=== PATIENT | female | born 2000 | race Caucasian/White ===

== ENCOUNTER 2022-04-18 20:27 | Emergency (ER) | payer OTHER, SELFPAY ==
[2022-04-18 20:29] VITALS: BP 152/101; PULSE 109; RESP 18; TEMP 36.3; O2SAT 100; BMI 18.6
--- NOTE | 2022-04-18 21:00 | ED_ITS ---
HPI - Psych General Chief Complaint: Psychiatric Symptoms Stated Complaint: Crisis Time Seen by Provider: 04/18/22 20:45 Source: patient and family (Father) Mode of arrival: ambulatory Limitations: no limitations History of Present Illness HPI Narrative: 22-year-old female brought to the emergency department by her father for evaluation in the emergency department and possible psychiatric admission after being evaluated by [facility]. The patient states that she has a history of anxiety and depression. She states that 3 weeks prior she moved in with her father and this is been a stressful situation for her. She states that she has become more anxious. She states she feels shaky. She states she is unable the focus. She also states she has had significant insomnia and is only able to sleep 5 hours a day. She denied hearing voices, being suicidal or having any suicide attempts. The patient went to [facility] for evaluation. Patient told me that initially they were considering partial outpatient programs however when the [facility] counselor spoke to the patient's psychiatrist, the psychiatrist had concerns that the patient needed inpatient treatment. The patient told me that approximately 1 year prior she had similar feelings and she had psychosis requiring hospitalization and she believes this is why her psychiatrist wanted her to come to the hospital. The patient denied fever, chills rhinorrhea, sore throat, cough, chest pain, frequency, urgency or dysuria. Patient states she does feel short of breath especially when she is anxious. She also states she gets nausea and diarrhea with her anxiety. MD complaint: anxiety Onset (ago): week(s) (3) Duration: constant History of same: Yes Relieving factors: none Exacerbating factors: other (Recent change in living situation) Associated symptoms: nausea, insomnia and other (Diarrhea) Treatments prior to arrival: none Related Data Home Medications Medication Instructions Recorded Confirmed No Known Home Meds 04/18/22 04/18/22 Allergies Allergy/AdvReac Type Severity Reaction Status Date / Time prednisone Allergy Unknown Verified 04/18/22 20:29 Review of Systems Review of Systems: Yes all other systems are reviewed and are negative [facility] Past Medical History [facility] Narrative: Past medical history: Anxiety, depression. Past surgical history: None. Social history: She denies tobacco use. She states that she does drink alcohol approximately 2 times a month. She occasionally uses marijuana edibles. Social History Social History Advance Directives: No Advance Directives Information Provided: No Physical Exam Vital Signs: Vital Signs: Last Vital Signs Temp 97.0 F 04/18/22 23:27 Pulse 86 04/18/22 23:27 Resp 16 04/18/22 23:27 BP 138/84 04/18/22 23:27 Pulse Ox 100 04/18/22 23:27 O2 Del Method 04/18/22 23:27 BMI result Body Mass Index 18.6 Const: General: cooperative and no acute distress Orientation/consciousness: oriented to person and oriented to place Limitations: no limitations HEENT: Head: Yes normal to inspection, Yes normocephalic and Yes atraumatic Ears: external ears normal General nose exam: Normal external nose present Face and sinus: Yes normal facial exam Mouth: Normal oral and palatal mucosa present Throat: Yes posterior oropharynx normal Eyes: General: appearance normal, both eyes and all related structures Pupils: Equal, round and reactive pupils present Neck: Neck: Yes normal visual inspection, Yes no lymphadenopathy, Yes trachea midline and Yes supple Chest: Chest palpation & inspection: normal inspection of the chest and normal palpation of entire chest wall Resp: Effort & Inspection: normal respiratory effort and able to speak in complete sentences Auscultation: clear to auscultation bilaterally Cardio: Rate: regular rate Rhythm: regular rhythm Heart sounds: S1 normal heart sound present, S2 normal heart sound present and no murmurs GI: Inspection: Yes normal to inspection Palpation (GI): Soft to palpation, nontender and no guarding Auscultation: normal bowel sounds : General: Yes no CVA tenderness Back/Spine/Pelvis: Back: no CVA tenderness Skin: General skin exam: no rashes or lesions noted Neuro: General: oriented to person and oriented to place Cranial nerves: Yes CN's II-XII intact bilaterally and Yes Equal, round and reactive pupils present Cognition (Neuro): normal cognition Motor exam (neuro): 5/5 motor strength present throughout Extrem: General: Yes normal to inspection Psych: Appearance: grossly normal Speech and movement: Normal speech and movement present Affect: normal affect Attitude: cooperative Thought process: Normal thought process present Thought content: Normal thought content present Course Course Course Narrative: 22-year-old female who is brought to emergency department by her father for possible psychiatric admission after being evaluated as an outpatient by [facility]. Apparently the patient's psychiatrist has concerns regarding the patient's presentation specially since the patient had psychosis 1 year prior with similar symptoms. At this time the patient denied being suicidal or homicidal. She does admit to being anxious. Her examination was unremarkable. Patient's urine test was negative. Patient's tox screen was negative. Patient's COVID-19 test was negative. 0905: Start physician observation: The patient was placed on a Section 12 by [facility]. Patient will be an inpatient search. Patient's examination is unremarkable MDM - Psych Lab Data Labs: Lab Results 04/18/22 04/18/22 04/18/22 Range/Units 21:24 22:33 22:33 Urine Test NEGATIVE (NEGATIVE) Urine Opiates Screen Not Detected (Not Detect) Urine Fentanyl Screen Not Detected (Not Detect) Ur Barbiturates Screen Not Detected (Not Detect) Ur Phencyclidine Scrn Not Detected (Not Detect) Ur Amphetamines Screen Not Detected (Not Detect) U Benzodiazepines Scrn Not Detected (Not Detect) Urine Cocaine Screen Not Detected (Not Detect) U Marijuana (THC) Screen Not Detected (Not Detect) COVID-19 ([place]) Negative (Negative) COVID-19 Clin Com See Note Discharge Plan Discharge Clinical Impression: Anxiety Patient Disposition: Still a Patient Prescriptions: No Action No Known Home Meds
[2022-04-18 21:49] LABS: COVID-19 Test Negative (Negative)
[2022-04-18] MEDS: Melatonin 3 MG TABLET 6 MG PO (22:30)
[2022-04-18 22:47] LABS: UPreg QC Valid YES; Urine Pregnancy NEGATIVE (NEGATIVE)
[2022-04-18 23:00] LABS: Amphetamine Screen Urine Not Detected (Not Detect); Barbiturates, Urine Not Detected (Not Detect); Benzodiazepines Screen Urine Not Detected (Not Detect); Cannabinoid Screen Urine Not Detected (Not Detect); Cocaine Screen Urine Not Detected (Not Detect); Fentanyl, urine Not Detected (Not Detect); Opiate Screen Urine Not Detected (Not Detect); Phencyclidine Screen Urine Not Detected (Not Detect)
[2022-04-18 23:27] VITALS: BP 138/84; PULSE 86; RESP 16; TEMP 36.1; O2SAT 100
[2022-04-18] MEDS: diphenhydrAMINE HCL 25 MG TABLET PO (23:39)
--- NOTE | 2022-04-19 06:31 | PC.NURSE ---
Patient slept though the night, no distress observed/reported, behavior non concerning, patient is currently not any medication, Melatonin 6 mg and Benadryle 25 mg administered to help sleep/delayed effect, disposition per [facility] from community is section 12 inpatient bed search, VSS, will continue to monitor.
[2022-04-19 12:26] VITALS: BP 127/95; PULSE 96; RESP 18; TEMP 36.8; O2SAT 100
[2022-04-19 19:51] VITALS: BP 125/90; PULSE 96; RESP 16; TEMP 36.4; O2SAT 100
[2022-04-20] MEDS: Ibuprofen 200 MG TABLET PO (01:02)
[2022-04-20 01:05] VITALS: BP 127/87; PULSE 94; RESP 16; TEMP 36.4; O2SAT 100
--- NOTE | 2022-04-20 05:37 | PC.NURSE ---
Patient slept through the night, no distress observed/reported, patient is not any scheduled medication at this time, Ibuprofen 200 mg administered for Headache with + effect, VSS, disposition per [facility] is section 12 inpatient bed search, no update on bed search, behavior non concerning, will continue to monitor.
== END 2022-04-20 15:31 | disposition home or self-care (01) ==
PROVIDERS: Emergency Provider Emergency Medicine Emergency Medical Services; PCP Internal Medicine
DX: F41.1 Generalized anxiety disorder (principal); F43.0 Acute stress reaction; F33.1 Major depressive disorder, recurrent, moderate; G47.00 Insomnia, unspecified; Z20.822 Contact with and (suspected) exposure to COVID-19; Z79.899 Other long term (current) drug therapy
CPT/HCPCS: 80307; 81025; 87635; 99285; Q0163

== ENCOUNTER 2023-05-08 14:16 | Inpatient (IN) | payer OTHER, SELFPAY ==
[2023-05-08 14:37] VITALS: BP 134/90; BP 136/77; PULSE 115; PULSE 86; RESP 18; TEMP 36.8; O2SAT 98; BMI 19.4
[2023-05-08 15:14] LABS: Appearance Urine Clear; Color Urine Yellow; Glucose Urine UA Negative (Negative); Leukocyte Esterase Urine Negative (Negative); Nitrite Urine Positive (Negative); PH 6.5 (5.0-9.0); Specific Gravity - Urine <= 1.005 (1.005-1.025); UMIC TRIGGER UACC YES; Urine Blood Trace (Negative); Urine Ketones 15 mg/dL (Negative); Urine Protein Negative (Neg-Trace)
[2023-05-08 15:15] LABS: UPreg QC Valid YES; Urine Pregnancy NEGATIVE (NEGATIVE)
[2023-05-08 15:15] LABS: MANUAL DIFF FLAG NO
[2023-05-08 15:16] LABS: Basophils Percent Auto 0.2 % (0-2); Eosinophils Percent Auto 0.4 % (0-4); Hemoglobin 13.5 g/dl (12.0-16.0); Imm Gran Abs Auto 0.02 X10*3/uL (0.00-0.03); Imm Gran Pct Auto 0.2 % (0.0-0.4); Lymphocytes Percent Auto 20.4 % (20-40); Mean Corpuscular HGB Conc 33.8 g/dl (31.0-35.0); Mean Corpuscular Hemoglobin 28.1 pg (27.0-33.0); Mean Corpuscular Volume 83.2 fL (80.0-98.0); Mean Platelet Volume 10.4 fL (9.4-12.3); Monocytes Absolute Auto 0.9 X10*3/uL (0.1-1.2); Neutrophils Absolute Auto 6.8 x10*3/uL (2.0-8.3); Neutrophils Percent Auto 69.8 % (45-73); Platelet Count 325 X10*3/uL (160-400); Red Blood Count 4.81 X10*6/uL (4.20-5.50); Red Cell Distribution Width 13.2 % (11.0-16.0); White Blood Count 9.8 X10*3/uL (4.8-10.8)
[2023-05-08 15:19] LABS: Bacteria Urine 4+ (None Seen); Hyaline Casts Urine 0-2 /LPF (0-2); RBC Urine 0-2 /HPF (0-2); Squamous Epithelial Cell Urine 0-2 /HPF (0-2); UACC Culture Trigger YES; WBC Urine 0-5 /HPF (0-5)
[2023-05-08 15:36] LABS: Acetaminophen LAB < 17 mcg/mL (<30); Salicylate < 5.0 mg/dL (15-30)
[2023-05-08 15:43] LABS: Alanine Aminotransferase 15 U/L (0-31); Albumin Level 5.2 g/dL (3.5-5.0); Alkaline Phosphatase 65 U/L (39-117); Anion Gap 16 (12-20); Aspartate Amino Transferase 21 U/L (5-31); Bilirubin Total 1.1 mg/dL (0.0-1.0); Blood Urea Nitrogen 7 mg/dL (9-16); Calcium 9.7 mg/dL (8.4-10.2); Carbon Dioxide 19 mmol/L (22-29); Chloride 110 mmol/L (96-108); Creatinine Clr Calc Pharmacy 97.6; Estimated Glomerular Filt Rate > 60; Ethanol < 10 mg/dL; Glucose Random 87 mg/dL (60-115); Potassium 3.2 mmol/L (3.3-5.1); Sodium 142 mmol/L (135-145); Total Protein 8.1 g/dL (6.5-8.0)
[2023-05-08 16:18] VITALS: RESP 18
--- NOTE | 2023-05-08 16:19 | PC.NURSE ---
Alie was BIBA she is presenting as disorganized, pressured and tangential. Alie keeps repeating Alie is god and is asking for her boyfriend and a sister who family reports lives across the country. Alie does endorse some marijuana usage but denies other drugs. Alie denies AVH. No clear answer to SI/HI but she does repeat words this health underwriter states back to herself multiple times. Labs pending and mom is visiting with her currently.
--- NOTE | 2023-05-08 16:59 | ED_ITS ---
HPI - Psych General Chief Complaint: Psychiatric Symptoms Stated Complaint: psychotic episode, no si/hi precautions, per ems Time Seen by Provider: 05/08/23 15:21 Source: other ( boyfriend, Michael) Mode of arrival: ambulatory Limitations: no limitations History of Present Illness HPI Narrative: 23-year-old female was brought to emergency department by ambulance for evaluation of acute psychosis. Information comes from the patient's boyfriend, Michael who lives with the patient. the boyfriend states that 2 weeks prior the patient had COVID and recovered a recent control shot and since that time she has had vaginal bleeding. He states that the patient has had a lot of stress at work and there has been several other events that have been extremely stressful to the patient. the patient organized a birthday constitution party for a friend which was extremely stressful to the patient and after this event, patient's seem to become more anxious, she was having difficulty sleeping and she became paranoid. 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 She also went to a hospital with her boyfriendto visit her boyfriend's friend and while she was in the hospital she became very paranoid again. her boyfriend states that her father is very sabianist and after seeing her father, the patient was made sabianist statements. When I introduced myself to the patient she told me that her name was Alie and got wants to keep her safe . according to her boyfriend, the patient may have had a psychotic break 1 year prior which was attributed being prednisone for poison jose. The patient rarely drinks alcohol and smokes marijuana several times a week. Related Data Home Medications Medication Instructions Recorded Confirmed medroxyprogesterone 150 mg/mL 150 mg IM [id number] 05/08/23 05/08/23 intramuscular syringe (Depo-Provera) Allergies Allergy/AdvReac Type Severity Reaction Status Date / Time prednisone Allergy Unknown Verified 04/18/22 20:29 Review of Systems 2 Review of Systems: Yes Unobtainable due to mental status PMFSH Past Medical History PMFSH Narrative: Past medical history: Anxiety and psychotic break 1 year prior. Social history: She lives with her boyfriend , Michael who was here in the emergency department with her. she does not smoke cigarettes. She rarely drinks alcohol. She does smoke marijuana you times Social History Social History Patient Tobacco Use Status: Never used Tobacco Advance Directives: No Advance Directives Information Provided: No Physical Exam 2 Vital Signs: Vital Signs: Last Vital Signs Temp 98.3 F 05/08/23 14:37 Pulse 115 H 05/08/23 14:37 Resp 18 05/08/23 16:18 BP 136/77 05/08/23 14:37 Pulse Ox 98 05/08/23 14:37 O2 Del Method Room Air 05/08/23 14:37 BMI result Body Mass Index 19.4 vital signs were normal. Exam General: Awake, alert , patient is talking however it is difficult to make sense of what she is saying, she did repeat that God will keep her safe Head: Normocephalic, atraumatic EENT: PERRL, Lids normal, sclera normal, conjunctiva normal, nose normal , ears normal, throat without erythema or exudates Neck: Supple, no adenopathy, trachea midline and nontender Lung: breath sounds symmetric, no wheezing, rales or rhonchi Chest: symmetric movement, nontender Heart: regular rate and rhythm, normal S1, S2 no murmurs or rubs Abdomen: soft, non-tender, nondistended, normal bowel sounds Back: no vertebral tenderness, no CVAT Extremities: no deformities, moves all extremities symmetrically Skin: no rashes, no lesion, normal color and warmth Neuro: Awake, alert, cranial nerves intact, strength symmetric bilateral , Psych: Pleasant, patient makes nonsensical statement, appears anxious, is cooperate Medical Decision Making Medical Decision Making [facility] Narrative: 23-year-old female who has a history of a psychotic break 1 year prior which was attributed to being on prednisone for poison jose who has been under stress over the last 2 weeks, over the last several days she has not been sleeping, she has had episodes of paranoid ideation. On examination the patient has nonsensical speech, is making vague sabianist statements. Following evaluation was ordered: CBC, CMP, TSH with reflex T4, ethanol level, urine tox screen, salicylate, acetaminophen levels, urinalysis, urine test, vitamin B12 and folate levels 17 10: Start physician observation Patient's laboratory evaluation revealed a low potassium of 3.2, low bicarb of 19 otherwise was unremarkable -this could be secondary to malnutrition. patient's drug screen was negative The patient has been having paranoid ideation. The patient will be kept in the emergency department Behavioral Health Unit until she can be evaluated by our care team for possible acute psychotic episode of unclear etiology. At the end of my shift, patient's care was turned over to my colleague, Dr. Charleen Montenegro Differential Diagnosis Differential Diagnoses: The differential diagnosis associated with the presentation includes differential diagnosis includes was not limited to acute psychotic episode, anxiety, depression, drug use, electrolyte abnormalities, anemia Admission/Observation Consideration of admission/observation: Escalation of care including admission/observation considered Lab Data MDM Lab Attestation statement: I reviewed the patient's lab results. head patient's potassium was low 3.2, bicarb was low 19 -these abnormalities may be secondary to malnutrition the patient's urine test was negative. CBC was normal. Urine drug screen was negative. COVID-19 was negative. Alcohol below detectable limits .acetaminophen and salicylate levels were below detectable limits as well pain 05/08/23 15:11 05/08/23 15:11 Labs: Lab Results 05/08/23 05/08/23 Range/Units 15:06 15:11 WBC 9.8 (4.8-10.8) X10*3/uL RBC 4.81 (4.20-5.50) X10*6/uL Hgb 13.5 (12.0-16.0) g/dl Hct 40.0 (37.0-47.0) % MCV 83.2 (80.0-98.0) fL MCH 28.1 (27.0-33.0) pg MCHC 33.8 (31.0-35.0) g/dl RDW 13.2 (11.0-16.0) % Plt Count 325 (160-400) X10*3/uL MPV 10.4 (9.4-12.3) fL Immature Gran % (Auto) 0.2 (0.0-0.4) % Neut % (Auto) 69.8 (45-73) % Lymph % (Auto) 20.4 (20-40) % [place] % (Auto) 9.0 (2-11) % Eos % (Auto) 0.4 (0-4) % Baso % (Auto) 0.2 (0-2) % Lymph # (Auto) 2.0 (1.2-4.9) X10*3/uL [place] # (Auto) 0.9 (0.1-1.2) X10*3/uL Eos # (Auto) 0.0 (0.0-0.4) X10*3/uL Baso # (Auto) 0.0 (0.0-0.2) X10*3/uL Abs Immat Gran (auto) 0.02 (0.00-0.03) X10*3/uL Absolute Neuts (auto) 6.8 (2.0-8.3) x10*3/uL Absolute Nucleated RBC 0.000 (0.0-0.012) X10*3/uL Nucleated RBC % (auto) 0.0 (0.0-0.2) /100WBC Sodium 142 (135-145) mmol/L Potassium 3.2 L (3.3-5.1) mmol/L Chloride 110 H (96-108) mmol/L Carbon Dioxide 19 L (22-29) mmol/L Anion Gap 16 (12-20) BUN 7 L (9-16) mg/dL Creatinine 0.77 (0.5-1.4) mg/dL Estim Creat Clear Calc 97.6 Estimated GFR > 60 Random Glucose 87 (60-115) mg/dL Calcium 9.7 (8.4-10.2) mg/dL Total Bilirubin 1.1 H (0.0-1.0) mg/dL AST 21 (5-31) U/L ALT 15 (0-31) U/L Alkaline Phosphatase 65 (39-117) U/L Total Protein 8.1 H (6.5-8.0) g/dL Albumin 5.2 H (3.5-5.0) g/dL Urine Color Yellow Urine Appearance Clear Urine pH 6.5 (5.0-9.0) Ur Specific [place] <= 1.005 (1.005-1.025) Urine Protein Negative (Neg-Trace) mg/dL Urine Glucose (UA) Negative (Negative) mg/dL Urine Ketones 15 (Negative) mg/dL Urine Blood Trace H (Negative) Urine Nitrite Positive H (Negative) Ur Leukocyte Esterase Negative (Negative) Urine RBC 0-2 (0-2) /HPF Urine WBC 0-5 (0-5) /HPF Ur Squamous Epith Cells 0-2 (0-2) /HPF Urine Bacteria 4+ (None Seen) Hyaline Casts 0-2 (0-2) /LPF Urine Test NEGATIVE (NEGATIVE) Salicylates < 5.0 L (15-30) mg/dL Acetaminophen < 17 (<30) mcg/mL Ethyl Alcohol < 10 mg/dL Discharge Plan Discharge Clinical Impression: Acute psychosis Patient Disposition: Still a Patient Prescriptions: No Action medroxyprogesterone [Depo-Provera] 150 mg/mL Syringe 150 mg IM [id number] Interventions: [place]-Suicide Risk Severity Scale Last Done: 05/08/23 16:14
[2023-05-08 17:16] LABS: Amphetamine Screen Urine Not Detected (Not Detect); Barbiturates, Urine Not Detected (Not Detect); Benzodiazepines Screen Urine Not Detected (Not Detect); Cannabinoid Screen Urine POSITIVE (Not Detect); Cocaine Screen Urine Not Detected (Not Detect); Fentanyl, urine Not Detected (Not Detect); Opiate Screen Urine Not Detected (Not Detect); Phencyclidine Screen Urine Not Detected (Not Detect)
--- NOTE | 2023-05-08 17:17 | MHC.EDTECH ---
Necklace removed from patient and placed in her locker. SG
[2023-05-08 18:09] LABS: Folate 17.3 ng/mL (> or = 4.0); Vitamin B12 1602 pg/mL (200-900)
[2023-05-08] MEDS: LORazepam 1 MG TABLET 2 MG PO (18:31)
[2023-05-08] MEDS: OLANZapine 10 MG TABLET PO (18:31)
[2023-05-08] MEDS: diphenhydrAMINE HCL 25 MG CAPSULE 50 MG PO (18:31)
[2023-05-08 19:03] LABS: TSH reflex Free T4 1.22 uIU/mL (0.32-4.0)
[2023-05-08 20:23] LABS: COVID-19 Test Negative (Negative); IDNOW Serial# BCCEAD1C
[2023-05-09 01:20] VITALS: BP 149/89; PULSE 88; RESP 18; TEMP 36.6; O2SAT 97
[2023-05-09 02:54] VITALS: BMI 19.4
[2023-05-09] MEDS: hydrOXYzine HCL 25 MG TABLET PO (03:09)
--- NOTE | 2023-05-09 03:56 | PC.ADMIT ---
Patient admitted to from [facility] on 05/09/23 at 0115 on a CV due to psychosis. For past week, patient has been experiencing poor sleep and appetite as well as disorganized speech, paranoia, confused thoughts, anxiety and psychomotor agitation. She has been experiencing recent life stressors as well as not being on current medications. Patient has had two prior episodes of psychosis within the past two years. She has had multiple inpatient hospitalizations (at [facility], [facility], and [facility]) in 2020. Upon arrival to the unit, patient appears paranoid, and responding to internal stimuli. She signed all appropriate releases of information. She had difficulty answering questions throughout admission process due to internal stimuli. Patient whispering answers and repeatedly signed the alphabet in sign language while answering questions. Skin check and contraband check completed with second RN. Unable to complete safety tool due to patient being medicated prior to arrival and falling asleep.
[2023-05-09 06:00] VITALS: BP 143/93; PULSE 142; RESP 18; TEMP 36; O2SAT 100
[2023-05-09 10:49] LABS: Alanine Aminotransferase 16 U/L (0-31); Albumin Level 5.1 g/dL (3.5-5.0); Alkaline Phosphatase 65 U/L (39-117); Anion Gap 18 (12-20); Aspartate Amino Transferase 21 U/L (5-31); Bilirubin Total 0.9 mg/dL (0.0-1.0); Blood Urea Nitrogen 8 mg/dL (9-16); Calcium 9.6 mg/dL (8.4-10.2); Carbon Dioxide 19 mmol/L (22-29); Chloride 108 mmol/L (96-108); Cholesterol 90 mg/dL (<200); Creatinine Clr Calc Pharmacy 82.7; Estimated Glomerular Filt Rate > 60; Glucose Fasting 126 mg/dL (60-99); HDL Cholesterol 38 mg/dL (>40); LDL Cholesterol Calculated 45 mg/dL (<100); Sodium 142 mmol/L (135-145); Total Protein 7.8 g/dL (6.5-8.0); Triglycerides 39 mg/dL (<150)
--- NOTE | 2023-05-09 10:52 | P.HPPS_ITS ---
HPI Date of Service: 05/09/23 Chief Complaint: psychosis Sources of Information: patient interviewed, chart reviewed and crisis/core team assessment reviewed HPI Subjective Notes: Conditional Voluntary Narrative: 23 year old female that lives in [place] with BF. Majority of the information was obtained from the crisis report. Further historic info will need to be obtained from family. Patient was disorganized and unable to participate. Patient's mom called for a crisis evaluation due to patient acting disorganized at home, not eating and not sleeping. She was paranoid and having disorganized thinking and having psychomotor agitation during her crisis evaluation. Patient was seen in [place] at her mother's request. She was then sent to the [place] [facility] Patient has a history of at least 2 psychotic breaks the last of which was a year ago. Patient has not been on medications. She also has a history of hospitalization at [facility] and [facility]. Per the crisis records, the patient's psychosis was triggered by steroids. 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 Also had moved to [place] with her BF. In the ED patient was anxious and unable to participate meaningfully in the interview at the ED and told the ED physician her name was Alie and God will protect me. Reported MJ use but no alcohol or other drugs. Lab work in the ED was unrevealing. Seen on the unit. She presented as a thin and petite young woman, intense eye contact, apprehensive. She was able to follow this speech writer to her room to meet but then sat on the bed and started mumbling incoherently in a soft voice. She was unable to coherently interact with this examiner. She was anxious. She was lifting both her pinkies in the air. Then she lay on the bed and started crying. She was seen standing in the doorway and scooting and talking to patients passing by.. Past Psychiatric History: February 2021: [facility] [place] April 2021: [facility] March 2021: [facility] Medical Evaluation Reviewed: Yes Recently received a depo provera shot. [facility] Family History: Reported mental illness in the family Social History: Raised in [facility]. Parents when patient was 15. Youngest of 2 sisters. Graduated [employer]. 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 Recent move with . Substance History: MJ Trauma History: Alluded to in crisis evaluation. Details unclear. Diagnostics Vital Signs (24Hr): Vital Signs - 24 hr 05/08/23 14:37 05/08/23 16:18 05/09/23 01:20 Temperature 98.3 F 97.8 F Pulse Rate 115 H 88 Respiratory Rate 18 18 18 Blood Pressure 136/77 149/89 H Pulse Oximetry 98 97 Oxygen Delivery Method Room Air Room Air 05/09/23 06:00 Temperature 96.8 F Pulse Rate 142 H Respiratory Rate 18 Blood Pressure 143/93 H Pulse Oximetry 100 Oxygen Delivery Method Room Air BMI result Body Mass Index 19.4 Labs 05/08/23 15:11 05/09/23 09:58 Labs: Laboratory Results - last 48 hr 05/08/23 05/08/23 05/08/23 15:06 15:11 20:00 WBC 9.8 RBC 4.81 Hgb 13.5 Hct 40.0 MCV 83.2 MCH 28.1 MCHC 33.8 RDW 13.2 Plt Count 325 MPV 10.4 Immature Gran % (Auto) 0.2 Neut % (Auto) 69.8 Lymph % (Auto) 20.4 [place] % (Auto) 9.0 Eos % (Auto) 0.4 Baso % (Auto) 0.2 Lymph # (Auto) 2.0 [place] # (Auto) 0.9 Eos # (Auto) 0.0 Baso # (Auto) 0.0 Abs Immat Gran (auto) 0.02 Absolute Neuts (auto) 6.8 Absolute Nucleated RBC 0.000 Nucleated RBC % (auto) 0.0 Sodium 142 Potassium 3.2 L Chloride 110 H Carbon Dioxide 19 L Anion Gap 16 BUN 7 L Creatinine 0.77 Estim Creat Clear Calc 97.6 Estimated GFR > 60 Random Glucose 87 Fasting Glucose Calcium 9.7 Total Bilirubin 1.1 H AST 21 ALT 15 Alkaline Phosphatase 65 Total Protein 8.1 H Albumin 5.2 H Triglycerides Cholesterol LDL Cholesterol, Calc HDL Cholesterol Vitamin B12 1602 H Folate 17.3 TSH 1.22 Urine Color Yellow Urine Appearance Clear Urine pH 6.5 Ur Specific [place] <= 1.005 Urine Protein Negative Urine Glucose (UA) Negative Urine Ketones 15 Urine Blood Trace H Urine Nitrite Positive H Ur Leukocyte Esterase Negative Urine RBC 0-2 Urine WBC 0-5 Ur Squamous Epith Cells 0-2 Urine Bacteria 4+ Hyaline Casts 0-2 Urine Test NEGATIVE Salicylates < 5.0 L Urine Opiates Screen Urine Fentanyl Screen Acetaminophen < 17 Ur Barbiturates Screen Ur Phencyclidine Scrn Ur Amphetamines Screen U Benzodiazepines Scrn Urine Cocaine Screen U Marijuana (THC) Screen Ethyl Alcohol < 10 COVID-19 ([facility]) Negative COVID-19 Clin Com See Note 05/08/23 05/09/23 Unknown 09:58 WBC RBC Hgb Hct MCV MCH MCHC RDW Plt Count MPV Immature Gran % (Auto) Neut % (Auto) Lymph % (Auto) [place] % (Auto) Eos % (Auto) Baso % (Auto) Lymph # (Auto) [place] # (Auto) Eos # (Auto) Baso # (Auto) Abs Immat Gran (auto) Absolute Neuts (auto) Absolute Nucleated RBC Nucleated RBC % (auto) Sodium 142 Potassium 3.0 L Chloride 108 Carbon Dioxide 19 L Anion Gap 18 BUN 8 L Creatinine 0.91 Estim Creat Clear Calc 82.7 Estimated GFR > 60 Random Glucose Fasting Glucose 126 H Calcium 9.6 Total Bilirubin 0.9 AST 21 ALT 16 Alkaline Phosphatase 65 Total Protein 7.8 Albumin 5.1 H Triglycerides 39 Cholesterol 90 LDL Cholesterol, Calc 45 HDL Cholesterol 38 L Vitamin B12 Folate TSH Urine Color Urine Appearance Urine pH Ur Specific [place] Urine Protein Urine Glucose (UA) Urine Ketones Urine Blood Urine Nitrite Ur Leukocyte Esterase Urine RBC Urine WBC Ur Squamous Epith Cells Urine Bacteria Hyaline Casts Urine Test Salicylates Urine Opiates Screen Not Detected Urine Fentanyl Screen Not Detected Acetaminophen Ur Barbiturates Screen Not Detected Ur Phencyclidine Scrn Not Detected Ur Amphetamines Screen Not Detected U Benzodiazepines Scrn Not Detected Urine Cocaine Screen Not Detected U Marijuana (THC) Screen POSITIVE H Ethyl Alcohol COVID-19 ([facility]) COVID-19 Clin Com Meds/Allergies Meds Home Medications Medication Instructions Recorded Confirmed Type medroxyprogesterone 150 mg/mL 150 mg IM [id number] 05/08/23 05/08/23 History intramuscular syringe (Depo-Provera) Allergies Allergies Allergy/AdvReac Type Severity Reaction Status Date / Time prednisone Allergy Unknown Verified 04/18/22 20:29 Mental Status Exam Mental Status Exam Patient Appearance: Disheveled Level of Consciousness: Awake, Disoriented, Restless, Alert and Inappropriate Patient Behavior: Hyperactive, Suspicious, Timid, Restless, Anxious, Fearful, Distractible, Confused, Good Eye Contact (intense) and Uncooperative Mood Description: Suspicious, Withdrawn, Fearful, Anxious, Labile (starts crying inexplicably), Sad, Nervous and Apprehensive Affect Description: Suspicious, Anxious, Labile, Nervous and Apprehensive Patient Cognition Impaired: Yes Ability to Follow Directions: Poor Speech Pattern: Impoverished, Whisper, Rambling, Soft-Spoken, Mumbled, Excessive and Pressured Memory Description: Immediate Impaired Hallucinations: Auditory (appears to be responding to IS. ) Delusions: Present (rastafarian) Perceptual Disturbances: Hallucinations Thought Process: Disoriented, Incoherent, Racing, Illogical, Distracted and Word Salad Thought Content: positive for Flight of Ideas, positive for Disoriented, positive for Racing, positive for Loose Associations, positive for Incoherent and positive for Disorganized Depressive Symptoms: Insomnia and Changes in Appetite Abnormal Motor Activity Signs and Symptoms: Hyperactivity and Restlessness Judgement: Poor Assessment & Plan Assessment & Plan (1) Psychosis: Status: Acute Code(s): F29 - Unspecified psychosis not due to a substance or known physiological condition Plan Patient with a history of prior psychosis, currently untreated with past history of at least 3 inpatient hospitalizations presents with disorganized behavior and thinking, mood lability, poor sleep and appetite. On MSE she is disheveled, confused, restless, makes unusual gestures, mumbling rapid speech and disorganized thinking. DDx: Schizophrenia Schizoaffective disorder Bipolar disorder with psychosis Other psychoses Plan: - Admit to M5 - Diagnostic clarification - Switch to 5 min checks. - Collaterals from family to clarify history - For now will treat with Olazapine 5 mg HS and PRN to start. - Milieu therapy Patient educated on: other Reason for continued inpatient stay Substantial Risk for: inability to function and rapid decompensation Statement Statement: I have reviewed the history and physical and performed a pertinent examination on my patient. No changes have occurred unless specified. If the History and Physical was not performed prior to admission, the Hospitalist's service will be consulted for completing the admission physical. Time Spent With Patient Time: Total time managing care of this patient today ____ minutes.
[2023-05-09] MEDS: OLANZapine 5 MG TABLET PO (16:57)
[2023-05-09] MEDS: LORazepam 1 MG TABLET PO (16:57)
[2023-05-09 19:50] VITALS: BP 140/86; PULSE 113; TEMP 36.2; O2SAT 99
--- NOTE | 2023-05-09 21:09 | PC.NURSE ---
Patient refused HS Zyprexa 5 mg po and Bactrim po at HS.
[2023-05-10] MEDS: OLANZapine 5 MG TABLET PO (02:24)
[2023-05-10] MEDS: LORazepam 1 MG TABLET PO ×2 (02:24→16:58)
[2023-05-10 09:21] VITALS: BP 176/96; PULSE 120; RESP 20; O2SAT 99
--- NOTE | 2023-05-10 13:11 | HO.PSYCHPN ---
Subjective Subjective Date of Service: 05/10/23 Reason For Visit: psychosis Interim History: Patient was seen and her mom was interviewed after. Patient continues to be disorganized. She is refusing her medication's including her olanzapine and the antibiotics. She needs a lot of encouragement. She was wandering into peoples rooms. She needed to concentrate direction. She had a hard time sleeping at night. She received 5 mg of olanzapine and Ativan. She is encouragement to eat. Mom reports that this is very similar to the episode that she got in 2020. She reports that she had a psychotic break in 2020. She required hospitalization at [facility]. She was on the psychiatric unit for three weeks and because of refusing to eat and drink, needed a transfer to the medical floor. She was discharged only to be readmitted to [facility]. Then she was admitted to [facility]. She in total was in and out of hospitals from January 2021, until April 2021. She stabilized on Depakote and another antipsychotic mom is not sure which one. She took medication's for six months, and then stopped on her own. She was followed by the on-track program through [facility] [place] until a few months ago. She was able to graduate college. 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 Just prior to her crisis evaluation. She started exhibiting paranoid and bizarre behavior. She appeared confused. She kept asking her mom about the date and needing constant reassurance. She kept asking her mom if things are real. She was having delusions and saying that families are racist. She was perseverative. Finally, mom decided to call crisis and the patient was referred to [facility] for hospitalization. Mom is hoping that she could be of help encouraging Alie to take her medication's and eat. Review of Systems Review of Systems Yes Unobtainable due to mental status Mental Status Exam Mental Status Exam Patient Appearance: Disheveled Level of Consciousness: Awake, Disoriented, Restless, Alert and Inappropriate Patient Behavior: Hyperactive, Suspicious, Timid, Restless, Anxious, Fearful, Distractible, Confused, Good Eye Contact (intense) and Uncooperative Mood Description: Suspicious, Withdrawn, Fearful, Anxious, Labile (starts crying inexplicably), Sad, Nervous and Apprehensive Affect Description: Suspicious, Anxious, Labile, Nervous and Apprehensive Patient Cognition Impaired: Yes Ability to Follow Directions: Poor Speech Pattern: Perseverating, Impoverished, Whisper, Rambling, Soft-Spoken, Mumbled, Excessive and Pressured Memory Description: Immediate Impaired Delusions: Paranoid Ideation and Present Thought Process: Illogical, Word Salad and Confusion Thought Content: positive for Disoriented, positive for Racing, positive for Perseveration (echolalia), positive for Poverty of Content, positive for Incoherent and positive for Disorganized Judgement: Poor Diagnostics Vital Signs (24Hr): Vital Signs - 24 hr 05/09/23 19:50 05/10/23 09:21 Temperature 97.2 F Pulse Rate 113 H 120 H Respiratory Rate 20 Blood Pressure 140/86 H 176/96 H Pulse Oximetry 99 99 Oxygen Delivery Method Room Air Room Air BMI result Body Mass Index 19.4 Labs 05/08/23 15:11 05/09/23 09:58 Labs: Laboratory Results - last 48 hr 05/08/23 05/08/23 05/08/23 15:06 15:11 20:00 WBC 9.8 RBC 4.81 Hgb 13.5 Hct 40.0 MCV 83.2 MCH 28.1 MCHC 33.8 RDW 13.2 Plt Count 325 MPV 10.4 Immature Gran % (Auto) 0.2 Neut % (Auto) 69.8 Lymph % (Auto) 20.4 [place] % (Auto) 9.0 Eos % (Auto) 0.4 Baso % (Auto) 0.2 Lymph # (Auto) 2.0 [place] # (Auto) 0.9 Eos # (Auto) 0.0 Baso # (Auto) 0.0 Abs Immat Gran (auto) 0.02 Absolute Neuts (auto) 6.8 Absolute Nucleated RBC 0.000 Nucleated RBC % (auto) 0.0 Sodium 142 Potassium 3.2 L Chloride 110 H Carbon Dioxide 19 L Anion Gap 16 BUN 7 L Creatinine 0.77 Estim Creat Clear Calc 97.6 Estimated GFR > 60 Random Glucose 87 Fasting Glucose Calcium 9.7 Total Bilirubin 1.1 H AST 21 ALT 15 Alkaline Phosphatase 65 Total Protein 8.1 H Albumin 5.2 H Triglycerides Cholesterol LDL Cholesterol, Calc HDL Cholesterol Vitamin B12 1602 H Folate 17.3 TSH 1.22 Urine Color Yellow Urine Appearance Clear Urine pH 6.5 Ur Specific [place] <= 1.005 Urine Protein Negative Urine Glucose (UA) Negative Urine Ketones 15 Urine Blood Trace H Urine Nitrite Positive H Ur Leukocyte Esterase Negative Urine RBC 0-2 Urine WBC 0-5 Ur Squamous Epith Cells 0-2 Urine Bacteria 4+ Hyaline Casts 0-2 Urine Test NEGATIVE Salicylates < 5.0 L Urine Opiates Screen Urine Fentanyl Screen Acetaminophen < 17 Ur Barbiturates Screen Ur Phencyclidine Scrn Ur Amphetamines Screen U Benzodiazepines Scrn Urine Cocaine Screen U Marijuana (THC) Screen Ethyl Alcohol < 10 COVID-19 ([facility]) Negative COVID-19 Clin Com See Note 05/08/23 05/09/23 Unknown 09:58 WBC RBC Hgb Hct MCV MCH MCHC RDW Plt Count MPV Immature Gran % (Auto) Neut % (Auto) Lymph % (Auto) [place] % (Auto) Eos % (Auto) Baso % (Auto) Lymph # (Auto) [place] # (Auto) Eos # (Auto) Baso # (Auto) Abs Immat Gran (auto) Absolute Neuts (auto) Absolute Nucleated RBC Nucleated RBC % (auto) Sodium 142 Potassium 3.0 L Chloride 108 Carbon Dioxide 19 L Anion Gap 18 BUN 8 L Creatinine 0.91 Estim Creat Clear Calc 82.7 Estimated GFR > 60 Random Glucose Fasting Glucose 126 H Calcium 9.6 Total Bilirubin 0.9 AST 21 ALT 16 Alkaline Phosphatase 65 Total Protein 7.8 Albumin 5.1 H Triglycerides 39 Cholesterol 90 LDL Cholesterol, Calc 45 HDL Cholesterol 38 L Vitamin B12 Folate TSH Urine Color Urine Appearance Urine pH Ur Specific [place] Urine Protein Urine Glucose (UA) Urine Ketones Urine Blood Urine Nitrite Ur Leukocyte Esterase Urine RBC Urine WBC Ur Squamous Epith Cells Urine Bacteria Hyaline Casts Urine Test Salicylates Urine Opiates Screen Not Detected Urine Fentanyl Screen Not Detected Acetaminophen Ur Barbiturates Screen Not Detected Ur Phencyclidine Scrn Not Detected Ur Amphetamines Screen Not Detected U Benzodiazepines Scrn Not Detected Urine Cocaine Screen Not Detected U Marijuana (THC) Screen POSITIVE H Ethyl Alcohol COVID-19 ([facility]) COVID-19 Clin Com Medications Medications Current Medications Acetaminophen (Acetaminophen 325 Mg Tablet) 650 mg PO Q6H PRN PRN Reason: Headache/Pain Mild Scale (1-3) Al Hydroxide/Mg Hydroxide (Magnesium Hydrox/Alum Hydrox 30 Ml Oral.Susp) 30 ml PO Q6H PRN PRN Reason: Heartburn/Nausea Lorazepam (Lorazepam 1 Mg Tablet) 1 mg PO TID PRN PRN Reason: Anxiety Last Admin: 05/10/23 02:24 Dose: 1 mg Magnesium Hydroxide (Milk Of Magnesia 30 Ml Oral.Susp) 30 ml PO DAILY PRN PRN Reason: Constipation Olanzapine (Olanzapine Odt 10 Mg Tab.Rapdis) 5 mg TRANSLINGU BEDTIME JEFFREY Olanzapine (Olanzapine Odt 10 Mg Tab.Rapdis) 5 mg TRANSLINGU BID PRN PRN Reason: agitation psychosis Trazodone HCl (Trazodone Hcl 50 Mg Tablet) 50 mg PO BEDTIME MRX1 PRN PRN Reason: Insomnia Trimethoprim/Sulfamethoxazole (Sulfamethox/Trimeth 800/160 Tablet) 1 tab PO Q12H JEFFREY Last Admin: 05/10/23 10:47 Dose: Not Given Allergies Allergies Allergy/AdvReac Type Severity Reaction Status Date / Time prednisone Allergy Unknown Verified 04/18/22 20:29 Assessment & Plan Assessment & Plan (1) Psychosis: Status: Acute Code(s): F29 - Unspecified psychosis not due to a substance or known physiological condition Plan Patient with a history of prior psychosis, currently untreated with past history of at least 3 inpatient hospitalizations presents with disorganized behavior and thinking, mood lability, poor sleep and appetite. On MSE she is disheveled, confused, restless, makes unusual gestures, mumbling rapid speech and disorganized thinking. DDx: Schizophrenia Schizoaffective disorder Bipolar disorder with psychosis Other psychoses Plan: - Admit to M5 - Diagnostic clarification - Switch to 5 min checks. - Collaterals from family to clarify history - For now will treat with Olazapine 5 mg HS and PRN to start. - Milieu therapy 05/10: encourage adherence. Continue to offer Zyprexa and Ativan. 1:1 obs. Reason for continued inpatient stay Substantial Risk for: inability to function and rapid decompensation Time Spent With Patient Time: Total time managing care of this patient today ____ minutes.
[2023-05-10 16:45] VITALS: BP 174/99; PULSE 93
[2023-05-10] MEDS: OLANZapine ODT 10 MG TAB.RAPDIS 5 MG TRANSLINGU (16:59)
[2023-05-10 17:56] VITALS: BP 174/99; PULSE 106; TEMP 36.3; O2SAT 100
--- NOTE | 2023-05-10 18:30 | PC.NURSE ---
Patient has been tearful and anxious with visual hallucinations. She is paranoid and asking staff please help me . Patient was given prn Ativan 1 mg po and Zyprexa 5 mg po prn at [address] Ambriz notified via text and he will order an additional Zyprexa 10 mg po x 1 dose.
[2023-05-10 18:41] VITALS: BP 128/86; PULSE 99; RESP 16; TEMP 36.4; O2SAT 99
[2023-05-10] MEDS: OLANZapine ODT 10 MG TAB.RAPDIS TRANSLINGU (18:41)
[2023-05-11 08:50] VITALS: BP 137/93; PULSE 131; RESP 20; TEMP 36.7; O2SAT 100
--- NOTE | 2023-05-11 10:10 | HO.PSYCHPN ---
Subjective Subjective Date of Service: 05/11/23 Reason For Visit: psychosis Subjective Notes: Conditional Voluntary Interim History: Reviewed in team and . Patient presents disorganized with flight of ideas and some paranoia. She is refusing medications even with staff encouragement; pt stated, I'm not on any medications . T/W attempted to educate patient regarding her medications; however patient is unable to understand and retain information at this time d/t mental status. T/W left VM for patient's mother, Dania, to be able to collect collateral; waiting for call back. Medication Compliance: No Attending Groups: No Review of Systems Constitutional: Reports as per HPI Eyes: Reports as per HPI Reports as per HPI Cardiovascular: Reports as per HPI Respiratory: Reports as per HPI Gastrointestinal: Reports as per HPI Genitourinary: Reports as per HPI Musculoskeletal: Reports as per HPI Skin/Breast: Reports as per HPI Reports as per HPI Psychiatric: Reports as per HPI Endocrine: Reports as per HPI Hematologic/Lymphatic: Reports as per HPI Allergic/Immunologic: Reports as per HPI Mental Status Exam Mental Status Exam Narrative: Pt is alert and oriented to self; behavior is uncooperative and calm; dressed in casual attire with unkempt hair; mood is described as good ; eye contact appropriate; Speech is normal rate, volume and prosody and not pressured; no psychomotor agitation/retardation present; thought process is disorganized; Thought content presents as flight of ideas; Patients insight and judgment are poor. Diagnostics Vital Signs (24Hr): Vital Signs - 24 hr 05/10/23 16:45 05/10/23 17:56 05/10/23 18:41 Temperature 97.3 F 97.6 F Pulse Rate 93 106 H 99 Respiratory Rate 16 Blood Pressure 174/99 H 174/99 H 128/86 Pulse Oximetry 100 99 Oxygen Delivery Method Room Air Room Air 05/11/23 08:50 Temperature 98.0 F Pulse Rate 131 H Respiratory Rate 20 Blood Pressure 137/93 H Pulse Oximetry 100 Oxygen Delivery Method BMI result Body Mass Index 19.4 Labs 05/08/23 15:11 05/09/23 09:58 Labs: Laboratory Results - last 48 hr 05/09/23 09:58 Sodium 142 Potassium 3.0 L Chloride 108 Carbon Dioxide 19 L Anion Gap 18 BUN 8 L Creatinine 0.91 Estim Creat Clear Calc 82.7 Estimated GFR > 60 Fasting Glucose 126 H Calcium 9.6 Total Bilirubin 0.9 AST 21 ALT 16 Alkaline Phosphatase 65 Total Protein 7.8 Albumin 5.1 H Triglycerides 39 Cholesterol 90 LDL Cholesterol, Calc 45 HDL Cholesterol 38 L Medications Medications Current Medications Acetaminophen (Acetaminophen 325 Mg Tablet) 650 mg PO Q6H PRN PRN Reason: Headache/Pain Mild Scale (1-3) Al Hydroxide/Mg Hydroxide (Magnesium Hydrox/Alum Hydrox 30 Ml Oral.Susp) 30 ml PO Q6H PRN PRN Reason: Heartburn/Nausea Lorazepam (Lorazepam 1 Mg Tablet) 1 mg PO TID PRN PRN Reason: Anxiety Last Admin: 05/10/23 16:58 Dose: 1 mg Magnesium Hydroxide (Milk Of Magnesia 30 Ml Oral.Susp) 30 ml PO DAILY PRN PRN Reason: Constipation Olanzapine (Olanzapine Odt 10 Mg Tab.Rapdis) 5 mg TRANSLINGU BEDTIME JEFFREY Last Admin: 05/10/23 19:20 Dose: Not Given Olanzapine (Olanzapine Odt 10 Mg Tab.Rapdis) 5 mg TRANSLINGU BID PRN PRN Reason: agitation psychosis Last Admin: 05/10/23 16:59 Dose: 5 mg Trazodone HCl (Trazodone Hcl 50 Mg Tablet) 50 mg PO BEDTIME MRX1 PRN PRN Reason: Insomnia Trimethoprim/Sulfamethoxazole (Sulfamethox/Trimeth 800/160 Tablet) 1 tab PO Q12H JEFFREY Last Admin: 05/11/23 09:15 Dose: Not Given Allergies Allergies Allergy/AdvReac Type Severity Reaction Status Date / Time prednisone Allergy Unknown Verified 04/18/22 20:29 Assessment & Plan Assessment & Plan (1) Psychosis: Status: Acute Code(s): F29 - Unspecified psychosis not due to a substance or known physiological condition Plan Patient with a history of prior psychosis, currently untreated with past history of at least 3 inpatient hospitalizations presents with disorganized behavior and thinking, mood lability, poor sleep and appetite. On MSE she is disheveled, confused, restless, makes unusual gestures, mumbling rapid speech and disorganized thinking. DDx: Schizophrenia Schizoaffective disorder Bipolar disorder with psychosis Other psychoses Plan: - Admit to M5 - Diagnostic clarification - Switch to 5 min checks. - Collaterals from family to clarify history - For now will treat with Olazapine 5 mg HS and PRN to start. - Milieu therapy 9/24: encourage adherence. Continue to offer Zyprexa and Ativan. 1:1 obs. 05/11: Patient presents disorganized with flight of ideas and some paranoia. She is refusing medications even with staff encouragement; pt stated, I'm not on any medications . T/W attempted to educate patient regarding her medications; however patient is unable to understand and retain information at this time d/t mental status. T/W left VM for patient's mother, Dania, to be able to collect collateral; waiting for call back. Patient educated on: medication risk/benefits Informed Consent: does not understand and further education needed Reason for continued inpatient stay Substantial Risk for: inability to function and med/psych decompensation Time Spent With Patient Time: Total time managing care of this patient today _30___ minutes.
--- NOTE | 2023-05-11 20:25 | PC.NURSE ---
Patient refused flu vaccination.
[2023-05-12] MEDS: LORazepam 1 MG TABLET PO (01:41)
[2023-05-12 09:30] VITALS: BP 158/86; PULSE 128; RESP 20; TEMP 36.8; O2SAT 99
--- NOTE | 2023-05-12 09:59 | HO.PSYCHPN ---
Subjective Subjective Date of Service: 05/12/23 Reason For Visit: psychosis Subjective Notes: Conditional Voluntary Interim History: Reviewed in team and . Patient presents disorganized with flight of ideas and some paranoia. She continues to refuse medications with staff encouragement. Patient is able to have a logical conversation for a brief moment and suddenly begins saying random words loudly. T/W and administrator social welfare met with patient's mother, Dania; pt's mother expressed her concerns and explained that Alie had her first episode at the age of 21 after taking predisone, which she was admitted to [facility], she was transferred to the medical unit d/t not eating or drinking; she was there for a month. Once discharged patient was then admitted 2 weeks later to [facility], length of stay was a month; pt was discharged, then two weeks later was admitted to [facility] d/t depression and suicidal ideation. It has been 2 years since her last admission, mother reports patient admitted to not being medication compliant for the past 15 months. Dania stated that she would be willing to testify in court if needed. freezing room worker to obtain records from [facility]. Medication Compliance: No Attending Groups: No Review of Systems Review of Systems Yes Unobtainable due to mental status Constitutional: Reports as per HPI Eyes: Reports as per HPI Reports as per HPI Cardiovascular: Reports as per HPI Respiratory: Reports as per HPI Gastrointestinal: Reports as per HPI Genitourinary: Reports as per HPI Musculoskeletal: Reports as per HPI Skin/Breast: Reports as per HPI Reports as per HPI Psychiatric: Reports as per HPI Endocrine: Reports as per HPI Hematologic/Lymphatic: Reports as per HPI Allergic/Immunologic: Reports as per HPI Mental Status Exam Mental Status Exam Narrative: Pt is alert and oriented to self; behavior is uncooperative and restless; dressed in casual attire with unkempt hair; mood is described as good ; eye contact appropriate; Speech is normal rate, volume and prosody and not pressured; no psychomotor agitation/retardation present; thought process is disorganized, suspicious; Thought content presents as flight of ideas, rambling; Patients insight and judgment are poor. Diagnostics Vital Signs (24Hr): BMI result Body Mass Index 19.4 Labs 05/08/23 15:11 05/09/23 09:58 Medications Medications Current Medications Acetaminophen (Acetaminophen 325 Mg Tablet) 650 mg PO Q6H PRN PRN Reason: Headache/Pain Mild Scale (1-3) Al Hydroxide/Mg Hydroxide (Magnesium Hydrox/Alum Hydrox 30 Ml Oral.Susp) 30 ml PO Q6H PRN PRN Reason: Heartburn/Nausea Lorazepam (Lorazepam 1 Mg Tablet) 1 mg PO TID PRN PRN Reason: Anxiety Last Admin: 05/12/23 01:41 Dose: 1 mg Magnesium Hydroxide (Milk Of Magnesia 30 Ml Oral.Susp) 30 ml PO DAILY PRN PRN Reason: Constipation Olanzapine (Olanzapine Odt 10 Mg Tab.Rapdis) 5 mg TRANSLINGU BEDTIME JEFFREY Last Admin: 05/11/23 19:55 Dose: Not Given Olanzapine (Olanzapine Odt 10 Mg Tab.Rapdis) 5 mg TRANSLINGU BID PRN PRN Reason: agitation psychosis Last Admin: 05/10/23 16:59 Dose: 5 mg Trazodone HCl (Trazodone Hcl 50 Mg Tablet) 50 mg PO BEDTIME MRX1 PRN PRN Reason: Insomnia Trimethoprim/Sulfamethoxazole (Sulfamethox/Trimeth 800/160 Tablet) 1 tab PO Q12H JEFFREY Last Admin: 05/12/23 08:39 Dose: Not Given Allergies Allergies Allergy/AdvReac Type Severity Reaction Status Date / Time prednisone Allergy Unknown Verified 04/18/22 20:29 Assessment & Plan Assessment & Plan (1) Psychosis: Status: Acute Code(s): F29 - Unspecified psychosis not due to a substance or known physiological condition Plan Patient with a history of prior psychosis, currently untreated with past history of at least 3 inpatient hospitalizations presents with disorganized behavior and thinking, mood lability, poor sleep and appetite. On MSE she is disheveled, confused, restless, makes unusual gestures, mumbling rapid speech and disorganized thinking. DDx: Schizophrenia Schizoaffective disorder Bipolar disorder with psychosis Other psychoses Plan: - Admit to M5 - Diagnostic clarification - Switch to 5 min checks. - Collaterals from family to clarify history - For now will treat with Olazapine 5 mg HS and PRN to start. - Milieu therapy 05/10: encourage adherence. Continue to offer Zyprexa and Ativan. 1:1 obs. 05/11: Patient presents disorganized with flight of ideas and some paranoia. She is refusing medications even with staff encouragement; pt stated, I'm not on any medications . T/W attempted to educate patient regarding her medications; however patient is unable to understand and retain information at this time d/t mental status. T/W left VM for patient's mother, Dania, to be able to collect collateral; waiting for call back. 05/12: T/W and SW met with patient mother; see above note. Pt continues to refuse medications. continues disorganized, flight of ideas, restless, rambling. Will continue to encourage medication. Patient educated on: medication risk/benefits Guardian/Caregiver educated on: diagnosis, medication risk/benefits and therapeutic strategies Informed Consent: does not understand and further education needed Reason for continued inpatient stay Substantial Risk for: inability to function and med/psych decompensation Time Spent With Patient Time: Total time managing care of this patient today _30___ minutes.
[2023-05-12] MEDS: OLANZapine ODT 10 MG TAB.RAPDIS 5 MG TRANSLINGU (15:39)
[2023-05-13 08:33] VITALS: BP 163/102; PULSE 97; RESP 16; TEMP 36.3; O2SAT 100
[2023-05-13 08:34] VITALS: BP 144/104; PULSE 97; RESP 16; TEMP 36.3; O2SAT 100
--- NOTE | 2023-05-13 08:35 | PC.NURSE ---
Addendum entered by Diane Okeefe RN 05/13/23 08:37: Shoshana Eng notified viatiger text of elevated BP Original Note: notifieddue to increased BP 163/102, 144/104
[2023-05-13] MEDS: LORazepam 1 MG TABLET PO ×2 (09:26→15:11)
[2023-05-13] MEDS: OLANZapine ODT 10 MG TAB.RAPDIS 5 MG TRANSLINGU ×3 (09:26→19:44)
--- NOTE | 2023-05-13 10:05 | HO.PSYCHPN ---
Subjective Subjective Date of Service: 05/13/23 Reason For Visit: psychosis Subjective Notes: Conditional Voluntary Interim History: Reviewed in team and . Patient continues to present disorganized with flight of ideas and some paranoia. Patient is able to have a logical conversation for a brief moment and suddenly begins saying random words and signing with her hands. She did take medications with staff and boyfriend encouragement. Waiting on records from [facility]. Medication Compliance: Intermittent Side effects from medications: No Attending Groups: No Review of Systems Review of Systems Yes Unobtainable due to mental status Constitutional: Reports as per HPI Eyes: Reports as per HPI Reports as per HPI Cardiovascular: Reports as per HPI Respiratory: Reports as per HPI Gastrointestinal: Reports as per HPI Genitourinary: Reports as per HPI Musculoskeletal: Reports as per HPI Skin/Breast: Reports as per HPI Reports as per HPI Psychiatric: Reports as per HPI Endocrine: Reports as per HPI Hematologic/Lymphatic: Reports as per HPI Allergic/Immunologic: Reports as per HPI Mental Status Exam Mental Status Exam Narrative: Pt is alert and oriented to self; behavior is uncooperative and restless; dressed in casual attire; mood is described as good ; eye contact appropriate; Speech is normal rate, volume and prosody and not pressured; no psychomotor agitation/retardation present; thought process is disorganized, suspicious; Thought content presents as flight of ideas; Patients insight and judgment are poor. Diagnostics Vital Signs (24Hr): Vital Signs - 24 hr 05/13/23 08:33 05/13/23 08:34 Temperature 97.4 F 97.4 F Pulse Rate 97 97 Respiratory Rate 16 16 Blood Pressure 163/102 H 144/104 H Pulse Oximetry 100 100 Oxygen Delivery Method Room Air Room Air BMI result Body Mass Index 19.4 Labs 05/08/23 15:11 05/09/23 09:58 Medications Medications Current Medications Acetaminophen (Acetaminophen 325 Mg Tablet) 650 mg PO Q6H PRN PRN Reason: Headache/Pain Mild Scale (1-3) Al Hydroxide/Mg Hydroxide (Magnesium Hydrox/Alum Hydrox 30 Ml Oral.Susp) 30 ml PO Q6H PRN PRN Reason: Heartburn/Nausea Cefuroxime Axetil (Cefuroxime Axetil 250 Mg Tablet) 250 mg PO Q12H JEFFREY Stop: 05/14/23 10:01 Last Admin: 05/13/23 09:26 Dose: 250 mg Lorazepam (Lorazepam 1 Mg Tablet) 1 mg PO TID PRN PRN Reason: Anxiety Last Admin: 05/13/23 09:26 Dose: 1 mg Magnesium Hydroxide (Milk Of Magnesia 30 Ml Oral.Susp) 30 ml PO DAILY PRN PRN Reason: Constipation Olanzapine (Olanzapine Odt 10 Mg Tab.Rapdis) 5 mg TRANSLINGU BEDTIME JEFFREY Last Admin: 05/12/23 22:41 Dose: Not Given Olanzapine (Olanzapine Odt 10 Mg Tab.Rapdis) 5 mg TRANSLINGU BID PRN PRN Reason: agitation psychosis Last Admin: 05/13/23 09:26 Dose: 5 mg Trazodone HCl (Trazodone Hcl 50 Mg Tablet) 50 mg PO BEDTIME MRX1 PRN PRN Reason: Insomnia Allergies Allergies Allergy/AdvReac Type Severity Reaction Status Date / Time prednisone Allergy Unknown Verified 04/18/22 20:29 Assessment & Plan Assessment & Plan (1) Psychosis: Status: Acute Code(s): F29 - Unspecified psychosis not due to a substance or known physiological condition Plan Patient with a history of prior psychosis, currently untreated with past history of at least 3 inpatient hospitalizations presents with disorganized behavior and thinking, mood lability, poor sleep and appetite. On MSE she is disheveled, confused, restless, makes unusual gestures, mumbling rapid speech and disorganized thinking. DDx: Schizophrenia Schizoaffective disorder Bipolar disorder with psychosis Other psychoses Plan: - Admit to M5 - Diagnostic clarification - Switch to 5 min checks. - Collaterals from family to clarify history - For now will treat with Olazapine 5 mg HS and PRN to start. - Milieu therapy 05/10: encourage adherence. Continue to offer Zyprexa and Ativan. 1:1 obs. 05/11: Patient presents disorganized with flight of ideas and some paranoia. She is refusing medications even with staff encouragement; pt stated, I'm not on any medications . T/W attempted to educate patient regarding her medications; however patient is unable to understand and retain information at this time d/t mental status. T/W left VM for patient's mother, Dania, to be able to collect collateral; waiting for call back. 05/12: T/W and SW met with patient mother; see above note. Pt continues to refuse medications. continues disorganized, flight of ideas, restless, rambling. Will continue to encourage medication. 05/13: Patient continues to present disorganized with flight of ideas and some paranoia. Patient is able to have a logical conversation for a brief moment and suddenly begins saying random words and signing with her hands. She did take medications with staff and boyfriend encouragement. Waiting on records from [facility]. Patient educated on: medication risk/benefits Informed Consent: further education needed Reason for continued inpatient stay Substantial Risk for: med/psych decompensation Time Spent With Patient Time: Total time managing care of this patient today _30___ minutes.
[2023-05-13 19:45] VITALS: BP 133/80; PULSE 94; TEMP 36.1; O2SAT 99
[2023-05-14 07:00] VITALS: BMI 18.6
[2023-05-14 08:15] VITALS: BP 134/89; PULSE 108; RESP 16; TEMP 36.9; O2SAT 98
--- NOTE | 2023-05-14 09:49 | HO.PSYCHPN ---
Subjective Subjective Date of Service: 05/14/23 Reason For Visit: psychosis Subjective Notes: Conditional Voluntary Interim History: Reviewed in team and . Patient continues to present more organized with some suspicion and paranoia. Patient is able to have a logical conversation but appears to be internally preoccupied. She did take medications with staff encouragement. T/W discussed risks/benefits of lithium; pt agreed to trial. Medication Compliance: Yes Side effects from medications: No Attending Groups: Intermittent Review of Systems Constitutional: Reports as per HPI Eyes: Reports as per HPI Reports as per HPI Cardiovascular: Reports as per HPI Respiratory: Reports as per HPI Gastrointestinal: Reports as per HPI Genitourinary: Reports as per HPI Musculoskeletal: Reports as per HPI Skin/Breast: Reports as per HPI Reports as per HPI Psychiatric: Reports as per HPI Endocrine: Reports as per HPI Hematologic/Lymphatic: Reports as per HPI Allergic/Immunologic: Reports as per HPI Mental Status Exam Mental Status Exam Narrative: Pt is alert and oriented to self; behavior is cooperative and restless; dressed in casual attire; mood is described as good ; eye contact appropriate; Speech is normal rate, volume and prosody and not pressured; no psychomotor agitation/retardation present; thought process is more organized, suspicious; Thought content presents slowed thinking; Patients insight and judgment are poor. Diagnostics Vital Signs (24Hr): Vital Signs - 24 hr 05/13/23 19:45 05/14/23 08:15 Temperature 97 F 98.4 F Pulse Rate 94 108 H Respiratory Rate 16 Blood Pressure 133/80 134/89 Pulse Oximetry 99 98 Oxygen Delivery Method Room Air Room Air BMI result Body Mass Index 19.4 Labs 05/08/23 15:11 05/14/23 10:20 Medications Medications Current Medications Acetaminophen (Acetaminophen 325 Mg Tablet) 650 mg PO Q6H PRN PRN Reason: Headache/Pain Mild Scale (1-3) Al Hydroxide/Mg Hydroxide (Magnesium Hydrox/Alum Hydrox 30 Ml Oral.Susp) 30 ml PO Q6H PRN PRN Reason: Heartburn/Nausea Cefuroxime Axetil (Cefuroxime Axetil 250 Mg Tablet) 250 mg PO Q12H JEFFREY Stop: 05/14/23 10:01 Last Admin: 05/14/23 09:30 Dose: 250 mg Lorazepam (Lorazepam 1 Mg Tablet) 1 mg PO TID PRN PRN Reason: Anxiety Last Admin: 05/13/23 15:11 Dose: 1 mg Magnesium Hydroxide (Milk Of Magnesia 30 Ml Oral.Susp) 30 ml PO DAILY PRN PRN Reason: Constipation Olanzapine (Olanzapine Odt 10 Mg Tab.Rapdis) 5 mg TRANSLINGU BEDTIME JEFFREY Last Admin: 05/13/23 19:44 Dose: 5 mg Olanzapine (Olanzapine Odt 10 Mg Tab.Rapdis) 5 mg TRANSLINGU BID PRN PRN Reason: agitation psychosis Last Admin: 05/13/23 15:11 Dose: 5 mg Trazodone HCl (Trazodone Hcl 50 Mg Tablet) 50 mg PO BEDTIME MRX1 PRN PRN Reason: Insomnia Allergies Allergies Allergy/AdvReac Type Severity Reaction Status Date / Time prednisone Allergy Unknown Verified 04/18/22 20:29 Assessment & Plan Assessment & Plan (1) Bipolar 2 disorder: Status: Acute Code(s): F31.81 - Bipolar II disorder Plan Patient with a history of prior psychosis, currently untreated with past history of at least 3 inpatient hospitalizations presents with disorganized behavior and thinking, mood lability, poor sleep and appetite. On MSE she is disheveled, confused, restless, makes unusual gestures, mumbling rapid speech and disorganized thinking. DDx: Schizophrenia Schizoaffective disorder Bipolar disorder with psychosis Other psychoses Plan: - Admit to M5 - Diagnostic clarification - Switch to 5 min checks. - Collaterals from family to clarify history - For now will treat with Olazapine 5 mg HS and PRN to start. - Milieu therapy 05/10: encourage adherence. Continue to offer Zyprexa and Ativan. 1:1 obs. 05/11: Patient presents disorganized with flight of ideas and some paranoia. She is refusing medications even with staff encouragement; pt stated, I'm not on any medications . T/W attempted to educate patient regarding her medications; however patient is unable to understand and retain information at this time d/t mental status. T/W left VM for patient's mother, aDnia, to be able to collect collateral; waiting for call back. 05/12: T/W and SW met with patient mother; see above note. Pt continues to refuse medications. continues disorganized, flight of ideas, restless, rambling. Will continue to encourage medication. 05/13: Patient continues to present disorganized with flight of ideas and some paranoia. Patient is able to have a logical conversation for a brief moment and suddenly begins saying random words and signing with her hands. She did take medications with staff and boyfriend encouragement. Waiting on records from [facility]. 05/14: Patient continues to present more organized with some suspicion and paranoia. Patient is able to have a logical conversation but appears to be internally preoccupied. She did take medications with staff encouragement. T/W discussed risks/benefits of lithium; pt agreed to trial. Patient educated on: diagnosis and medication risk/benefits Informed Consent: understands and further education needed Reason for continued inpatient stay Substantial Risk for: med/psych decompensation Time Spent With Patient Time: Total time managing care of this patient today _30___ minutes.
[2023-05-14 10:43] LABS: Ammonia 24 umol/L (13-55)
[2023-05-14] MEDS: OLANZapine ODT 10 MG TAB.RAPDIS 5 MG TRANSLINGU ×2 (11:02→19:06)
[2023-05-14] MEDS: LORazepam 1 MG TABLET PO ×2 (11:03→19:05)
--- NOTE | 2023-05-14 11:15 | PC.NURSE ---
Pt requested mother Dania be called and told that she is taking her meds and has a prednisone allergy. Called Dania at [phone]
[2023-05-14 11:28] LABS: Alanine Aminotransferase 21 U/L (0-31); Albumin Level 4.9 g/dL (3.5-5.0); Alkaline Phosphatase 63 U/L (39-117); Anion Gap 16 (12-20); Aspartate Amino Transferase 18 U/L (5-31); Bilirubin Direct 0.3 mg/dL (0.0-0.5); Bilirubin Total 0.8 mg/dL (0.0-1.0); Blood Urea Nitrogen 8 mg/dL (9-16); Calcium 9.8 mg/dL (8.4-10.2); Carbon Dioxide 21 mmol/L (22-29); Chloride 108 mmol/L (96-108); Creatinine Clr Calc Pharmacy 83.8; Estimated Glomerular Filt Rate > 60; Glucose Random 130 mg/dL (60-115); Potassium 3.9 mmol/L (3.3-5.1); Sodium 141 mmol/L (135-145); Total Protein 7.5 g/dL (6.5-8.0)
[2023-05-14 11:44] LABS: TSH reflex Free T4 0.59 uIU/mL (0.32-4.0)
[2023-05-14] MEDS: Lithium Carbonate ER 300 MG TABLET.ER PO (19:05)
[2023-05-15] MEDS: Acetaminophen 325 MG TABLET 650 MG PO (06:05)
[2023-05-15] MEDS: Lithium Carbonate ER 300 MG TABLET.ER PO ×2 (08:05→21:24)
[2023-05-15 08:45] VITALS: BP 126/87; PULSE 98; RESP 16; TEMP 36.9; O2SAT 100
--- NOTE | 2023-05-15 10:39 | HO.PSYCHPN ---
Subjective Subjective Date of Service: 05/15/23 Reason For Visit: psychosis Subjective Notes: Conditional Voluntary Interim History: Reviewed in team and . Patient continues to present more organized with some suspicion and paranoia. Patient is able to have a logical conversation but appears to be internally preoccupied with some confusion. She did take medications with staff encouragement. T/W and school social worker, Jeannine, met with patients mother and stepfather; family was informed regarding patients current medications; risks/benefits discussed. Medication Compliance: Yes Side effects from medications: No Attending Groups: Intermittent Review of Systems Constitutional: Reports as per HPI Eyes: Reports as per HPI Reports as per HPI Cardiovascular: Reports as per HPI Respiratory: Reports as per HPI Gastrointestinal: Reports as per HPI Genitourinary: Reports as per HPI Musculoskeletal: Reports as per HPI Skin/Breast: Reports as per HPI Reports as per HPI Psychiatric: Reports as per HPI Endocrine: Reports as per HPI Hematologic/Lymphatic: Reports as per HPI Allergic/Immunologic: Reports as per HPI Mental Status Exam Mental Status Exam Narrative: Pt is alert and oriented to self; behavior is cooperative and restless; dressed in casual attire; mood is described as good ; eye contact appropriate; Speech is normal rate, volume and prosody and not pressured; no psychomotor agitation/retardation present; thought process is more organized, suspicious, some confusion; Thought content presents slowed thinking; Patients insight and judgment are poor. Patient Appearance: Disheveled Level of Consciousness: Awake, Disoriented, Restless, Alert and Inappropriate Patient Behavior: Hyperactive, Suspicious, Timid, Restless, Anxious, Fearful, Distractible, Confused, Good Eye Contact (intense) and Uncooperative Mood Description: Suspicious, Withdrawn, Fearful, Anxious, Labile (starts crying inexplicably), Sad, Nervous and Apprehensive Affect Description: Suspicious, Anxious, Labile, Nervous and Apprehensive Patient Cognition Impaired: Yes Ability to Follow Directions: Poor Speech Pattern: Perseverating, Impoverished, Whisper, Rambling, Soft-Spoken, Mumbled, Excessive and Pressured Memory Description: Immediate Impaired Diagnostics Vital Signs (24Hr): Vital Signs - 24 hr 05/15/23 08:45 Temperature 98.5 F Pulse Rate 98 Respiratory Rate 16 Blood Pressure 126/87 Pulse Oximetry 100 Oxygen Delivery Method Room Air BMI result Body Mass Index 18.6 Labs 05/08/23 15:11 05/14/23 10:20 Labs: Laboratory Results - last 48 hr 05/14/23 10:20 Sodium 141 Potassium 3.9 D Chloride 108 Carbon Dioxide 21 L Anion Gap 16 BUN 8 L Creatinine 0.86 Estim Creat Clear Calc 83.8 Estimated GFR > 60 Random Glucose 130 H Calcium 9.8 Total Bilirubin 0.8 Direct Bilirubin 0.3 AST 18 ALT 21 Alkaline Phosphatase 63 Ammonia 24 Total Protein 7.5 Albumin 4.9 TSH 0.59 Medications Medications Current Medications Acetaminophen (Acetaminophen 325 Mg Tablet) 650 mg PO Q6H PRN PRN Reason: Headache/Pain Mild Scale (1-3) Last Admin: 05/15/23 06:05 Dose: 650 mg Al Hydroxide/Mg Hydroxide (Magnesium Hydrox/Alum Hydrox 30 Ml Oral.Susp) 30 ml PO Q6H PRN PRN Reason: Heartburn/Nausea [place] Carbonate ([place] Carbonate Er 300 Mg Tablet.Er) 300 mg PO BID JEFFREY Last Admin: 05/15/23 08:05 Dose: 300 mg Lorazepam (Lorazepam 1 Mg Tablet) 1 mg PO TID PRN PRN Reason: Anxiety Last Admin: 05/14/23 19:05 Dose: 1 mg Magnesium Hydroxide (Milk Of Magnesia 30 Ml Oral.Susp) 30 ml PO DAILY PRN PRN Reason: Constipation Olanzapine (Olanzapine Odt 10 Mg Tab.Rapdis) 5 mg TRANSLINGU BEDTIME JEFFREY Last Admin: 05/14/23 19:06 Dose: 5 mg Olanzapine (Olanzapine Odt 10 Mg Tab.Rapdis) 5 mg TRANSLINGU BID PRN PRN Reason: agitation psychosis Last Admin: 05/14/23 11:02 Dose: 5 mg Trazodone HCl (Trazodone Hcl 50 Mg Tablet) 50 mg PO BEDTIME MRX1 PRN PRN Reason: Insomnia Allergies Allergies Allergy/AdvReac Type Severity Reaction Status Date / Time prednisone Allergy Unknown Verified 04/18/22 20:29 Assessment & Plan Assessment & Plan (1) Bipolar 2 disorder: Status: Acute Code(s): F31.81 - Bipolar II disorder Plan Patient with a history of prior psychosis, currently untreated with past history of at least 3 inpatient hospitalizations presents with disorganized behavior and thinking, mood lability, poor sleep and appetite. On MSE she is disheveled, confused, restless, makes unusual gestures, mumbling rapid speech and disorganized thinking. DDx: Schizophrenia Schizoaffective disorder Bipolar disorder with psychosis Other psychoses Plan: - Admit to M5 - Diagnostic clarification - Switch to 5 min checks. - Collaterals from family to clarify history - For now will treat with Olazapine 5 mg HS and PRN to start. - Milieu therapy 05/10: encourage adherence. Continue to offer Zyprexa and Ativan. 1:1 obs. 05/11: Patient presents disorganized with flight of ideas and some paranoia. She is refusing medications even with staff encouragement; pt stated, I'm not on any medications . T/W attempted to educate patient regarding her medications; however patient is unable to understand and retain information at this time d/t mental status. T/W left VM for patient's mother, Dania, to be able to collect collateral; waiting for call back. 05/12: T/W and SW met with patient mother; see above note. Pt continues to refuse medications. continues disorganized, flight of ideas, restless, rambling. Will continue to encourage medication. 05/13: Patient continues to present disorganized with flight of ideas and some paranoia. Patient is able to have a logical conversation for a brief moment and suddenly begins saying random words and signing with her hands. She did take medications with staff and boyfriend encouragement. Waiting on records from [facility]. 05/14: Patient continues to present more organized with some suspicion and paranoia. Patient is able to have a logical conversation but appears to be internally preoccupied. She did take medications with staff encouragement. T/W discussed risks/benefits of lithium; pt agreed to trial. 05/15: Patient continues to present more organized with some suspicion and paranoia. Patient is able to have a logical conversation but appears to be internally preoccupied with some confusion. Medication compliant. T/W and school social worker, Jeannine, met with patients mother and stepfather; family was informed regarding patients current medications; risks/benefits discussed. Parents expressed appreciation, they plan on visiting patient throughout the weekend. Patient educated on: medication risk/benefits Guardian/Caregiver educated on: diagnosis, medication risk/benefits and therapeutic strategies Informed Consent: understands and further education needed Reason for continued inpatient stay Substantial Risk for: med/psych decompensation Time Spent With Patient Time: Total time managing care of this patient today _30___ minutes.
[2023-05-15] MEDS: OLANZapine ODT 10 MG TAB.RAPDIS 5 MG TRANSLINGU ×2 (14:39→21:24)
[2023-05-15] MEDS: LORazepam 1 MG TABLET PO (21:25)
[2023-05-16 08:36] VITALS: BP 140/90; PULSE 95; RESP 16; TEMP 36.3; O2SAT 100
[2023-05-16] MEDS: LORazepam 1 MG TABLET PO (09:49)
[2023-05-16] MEDS: OLANZapine ODT 10 MG TAB.RAPDIS 5 MG TRANSLINGU ×2 (09:50→20:42)
--- NOTE | 2023-05-16 11:48 | HO.PSYCHPN ---
Subjective Subjective Date of Service: 05/16/23 Reason For Visit: psychosis Interim History: Pt mostly in her room. She reports she does not know if she is the elephant or if she was following the elephant... referring to reason for this admission. She reports coloring helps with anxiety. She is guarded and suspicious about medications. she denies SI/HI. delayed response, internally preoccupied. taking meds with much encouragement. Medication Compliance: Yes Review of Systems Review of Systems Yes Unobtainable due to mental status Constitutional: Reports as per HPI Eyes: Reports as per HPI Reports as per HPI Cardiovascular: Reports as per HPI Respiratory: Reports as per HPI Gastrointestinal: Reports as per HPI Musculoskeletal: Reports as per HPI Skin/Breast: Reports as per HPI Reports as per HPI Psychiatric: Reports as per HPI Endocrine: Reports as per HPI Hematologic/Lymphatic: Reports as per HPI Allergic/Immunologic: Reports as per HPI Mental Status Exam Mental Status Exam Narrative: Pt is alert and oriented to self; behavior is cooperative and restless; dressed in casual attire; mood is described as good ; eye contact appropriate; Speech is normal rate, volume and prosody and not pressured; no psychomotor agitation/retardation present; thought process is more organized, suspicious, some confusion; Thought content presents slowed thinking; Patients insight and judgment are poor. Diagnostics Vital Signs (24Hr): Vital Signs - 24 hr 05/16/23 08:36 Temperature 97.4 F Pulse Rate 95 Respiratory Rate 16 Blood Pressure 140/90 H Pulse Oximetry 100 Oxygen Delivery Method Room Air BMI result Body Mass Index 18.6 Labs 05/08/23 15:11 05/14/23 10:20 Medications Medications Current Medications Acetaminophen (Acetaminophen 325 Mg Tablet) 650 mg PO Q6H PRN PRN Reason: Headache/Pain Mild Scale (1-3) Last Admin: 05/15/23 06:05 Dose: 650 mg Al Hydroxide/Mg Hydroxide (Magnesium Hydrox/Alum Hydrox 30 Ml Oral.Susp) 30 ml PO Q6H PRN PRN Reason: Heartburn/Nausea [place] Carbonate ([place] Carbonate Er 300 Mg Tablet.Er) 300 mg PO BID JEFFREY Last Admin: 05/16/23 09:48 Dose: Not Given Lorazepam (Lorazepam 1 Mg Tablet) 1 mg PO TID PRN PRN Reason: Anxiety Last Admin: 05/16/23 09:49 Dose: 1 mg Magnesium Hydroxide (Milk Of Magnesia 30 Ml Oral.Susp) 30 ml PO DAILY PRN PRN Reason: Constipation Olanzapine (Olanzapine Odt 10 Mg Tab.Rapdis) 5 mg TRANSLINGU BEDTIME JEFFREY Last Admin: 05/15/23 21:24 Dose: 5 mg Olanzapine (Olanzapine Odt 10 Mg Tab.Rapdis) 5 mg TRANSLINGU BID PRN PRN Reason: agitation psychosis Last Admin: 05/16/23 09:50 Dose: 5 mg Trazodone HCl (Trazodone Hcl 50 Mg Tablet) 50 mg PO BEDTIME MRX1 PRN PRN Reason: Insomnia Allergies Allergies Allergy/AdvReac Type Severity Reaction Status Date / Time prednisone Allergy Unknown Verified 04/18/22 20:29 Assessment & Plan Assessment & Plan (1) Schizoaffective disorder: Status: Acute Code(s): F25.9 - Schizoaffective disorder, unspecified Plan Patient with a history of prior psychosis, currently untreated with past history of at least 3 inpatient hospitalizations presents with disorganized behavior and thinking, mood lability, poor sleep and appetite. On MSE she is disheveled, confused, restless, makes unusual gestures, mumbling rapid speech and disorganized thinking. DDx: Schizophrenia Schizoaffective disorder Bipolar disorder with psychosis Other psychoses 05/10: encourage adherence. Continue to offer Zyprexa and Ativan. 1:1 obs. 05/11: Patient presents disorganized with flight of ideas and some paranoia. She is refusing medications even with staff encouragement; pt stated, I'm not on any medications . T/W attempted to educate patient regarding her medications; however patient is unable to understand and retain information at this time d/t mental status. T/W left VM for patient's mother, Dania, to be able to collect collateral; waiting for call back. 05/12: T/W and SW met with patient mother; see above note. Pt continues to refuse medications. continues disorganized, flight of ideas, restless, rambling. Will continue to encourage medication. 05/13: Patient continues to present disorganized with flight of ideas and some paranoia. Patient is able to have a logical conversation for a brief moment and suddenly begins saying random words and signing with her hands. She did take medications with staff and boyfriend encouragement. Waiting on records from [facility]. 05/14: Patient continues to present more organized with some suspicion and paranoia. Patient is able to have a logical conversation but appears to be internally preoccupied. She did take medications with staff encouragement. T/W discussed risks/benefits of lithium; pt agreed to trial. 05/15: Patient continues to present more organized with some suspicion and paranoia. Patient is able to have a logical conversation but appears to be internally preoccupied with some confusion. Medication compliant. T/W and social work faculty member, Jeannine, met with patients mother and stepfather; family was informed regarding patients current medications; risks/benefits discussed. Parents expressed appreciation, they plan on visiting patient throughout the weekend. 05/16 continue tx. Reason for continued inpatient stay Substantial Risk for: inability to function Time Spent With Patient Time: Total time managing care of this patient today ____ minutes.
[2023-05-16 20:00] VITALS: BP 142/94; PULSE 90; TEMP 36.1
[2023-05-16] MEDS: Lithium Carbonate ER 300 MG TABLET.ER PO (20:42)
[2023-05-17] MEDS: Lithium Carbonate ER 300 MG TABLET.ER PO ×2 (09:04→20:17)
[2023-05-17 09:22] VITALS: BP 156/89; PULSE 95; RESP 16; TEMP 36.6; O2SAT 99
[2023-05-17] MEDS: OLANZapine ODT 10 MG TAB.RAPDIS 5 MG TRANSLINGU ×2 (10:13→20:17)
[2023-05-17] MEDS: LORazepam 1 MG TABLET PO (10:13)
[2023-05-17 18:00] VITALS: BP 132/89; PULSE 94; TEMP 36; O2SAT 99
--- NOTE | 2023-05-17 19:23 | P.PNPSI_ITS ---
Subjective Subjective Date of Service: 05/17/23 Reason For Visit: psychosis Subjective Notes: Conditional Voluntary Interim History: Pt mostly in her room. She continues to present as internally preoccupied. Some delayed in response with some degree of blank staring. She denies SI/HI. She has been sleeping. taking medications as prescribed with much encouragement. no behavioral concerns. Medication Compliance: Yes Review of Systems Review of Systems Yes Unobtainable due to mental status Constitutional: Reports as per HPI Eyes: Reports as per HPI Reports as per HPI Cardiovascular: Reports as per HPI Respiratory: Reports as per HPI Gastrointestinal: Reports as per HPI Musculoskeletal: Reports as per HPI Skin/Breast: Reports as per HPI Reports as per HPI Psychiatric: Reports as per HPI Endocrine: Reports as per HPI Hematologic/Lymphatic: Reports as per HPI Allergic/Immunologic: Reports as per HPI Mental Status Exam Mental Status Exam Narrative: Pt is alert and oriented to self; behavior is cooperative and restless; dressed in casual attire; mood is described as good ; eye contact appropriate; Speech is normal rate, volume and prosody and not pressured; no psychomotor agitation/retardation present; thought process is more organized, suspicious, some confusion; Thought content presents slowed thinking; Patients insight and judgment are poor. Diagnostics Vital Signs (24Hr): Vital Signs - 24 hr 05/16/23 20:00 05/17/23 09:22 05/17/23 18:00 Temperature 96.9 F 97.9 F 96.8 F Pulse Rate 90 95 94 Respiratory Rate 16 Blood Pressure 142/94 H 156/89 H 132/89 Pulse Oximetry 99 99 Oxygen Delivery Method Room Air Room Air BMI result Body Mass Index 18.6 Labs 05/08/23 15:11 05/14/23 10:20 Medications Medications Current Medications Acetaminophen (Acetaminophen 325 Mg Tablet) 650 mg PO Q6H PRN PRN Reason: Headache/Pain Mild Scale (1-3) Last Admin: 05/15/23 06:05 Dose: 650 mg Al Hydroxide/Mg Hydroxide (Magnesium Hydrox/Alum Hydrox 30 Ml Oral.Susp) 30 ml PO Q6H PRN PRN Reason: Heartburn/Nausea [place] Carbonate ([place] Carbonate Er 300 Mg Tablet.Er) 300 mg PO BID JEFFREY Last Admin: 05/17/23 09:04 Dose: 300 mg Lorazepam (Lorazepam 1 Mg Tablet) 1 mg PO TID PRN PRN Reason: Anxiety Last Admin: 05/17/23 10:13 Dose: 1 mg Magnesium Hydroxide (Milk Of Magnesia 30 Ml Oral.Susp) 30 ml PO DAILY PRN PRN Reason: Constipation Olanzapine (Olanzapine Odt 10 Mg Tab.Rapdis) 5 mg TRANSLINGU BEDTIME JEFFREY Last Admin: 05/16/23 20:42 Dose: 5 mg Olanzapine (Olanzapine Odt 10 Mg Tab.Rapdis) 5 mg TRANSLINGU BID PRN PRN Reason: agitation psychosis Last Admin: 05/17/23 10:13 Dose: 5 mg Trazodone HCl (Trazodone Hcl 50 Mg Tablet) 50 mg PO BEDTIME MRX1 PRN PRN Reason: Insomnia Allergies Allergies Allergy/AdvReac Type Severity Reaction Status Date / Time prednisone Allergy Unknown Verified 04/18/22 20:29 Assessment & Plan Assessment & Plan (1) Schizoaffective disorder: Status: Acute Code(s): F25.9 - Schizoaffective disorder, unspecified Plan Patient with a history of prior psychosis, currently untreated with past history of at least 3 inpatient hospitalizations presents with disorganized behavior and thinking, mood lability, poor sleep and appetite. On MSE she is disheveled, confused, restless, makes unusual gestures, mumbling rapid speech and disorganized thinking. DDx: Schizophrenia Schizoaffective disorder Bipolar disorder with psychosis Other psychoses 05/10: encourage adherence. Continue to offer Zyprexa and Ativan. 1:1 obs. 05/11: Patient presents disorganized with flight of ideas and some paranoia. She is refusing medications even with staff encouragement; pt stated, I'm not on any medications . T/W attempted to educate patient regarding her medications; however patient is unable to understand and retain information at this time d/t mental status. T/W left VM for patient's mother, Dania, to be able to collect collateral; waiting for call back. 05/12: T/W and SW met with patient mother; see above note. Pt continues to refuse medications. continues disorganized, flight of ideas, restless, rambling. Will continue to encourage medication. 05/13: Patient continues to present disorganized with flight of ideas and some paranoia. Patient is able to have a logical conversation for a brief moment and suddenly begins saying random words and signing with her hands. She did take medications with staff and boyfriend encouragement. Waiting on records from [facility]. 05/14: Patient continues to present more organized with some suspicion and paranoia. Patient is able to have a logical conversation but appears to be internally preoccupied. She did take medications with staff encouragement. T/W discussed risks/benefits of lithium; pt agreed to trial. 05/15: Patient continues to present more organized with some suspicion and paranoia. Patient is able to have a logical conversation but appears to be internally preoccupied with some confusion. Medication compliant. T/W and social service director, Jeannine, met with patients mother and stepfather; family was informed regarding patients current medications; risks/benefits discussed. Parents expressed appreciation, they plan on visiting patient throughout the weekend. 05/16 continue tx. 05/17 continue tx. consider increasing olanzapine, may schedule dose of ativan may help with latency and blank stare. Reason for continued inpatient stay Substantial Risk for: inability to function Time Spent With Patient Time: Total time managing care of this patient today ____ minutes.
[2023-05-18] MEDS: LORazepam 1 MG TABLET PO ×2 (03:59→13:40)
[2023-05-18 08:37] LABS: Lithium 0.31 mmol/L (0.60-1.20)
[2023-05-18 08:40] VITALS: BP 133/89; PULSE 109; TEMP 36.1; O2SAT 98
[2023-05-18] MEDS: Lithium Carbonate ER 300 MG TABLET.ER PO ×2 (09:18→19:56)
[2023-05-18 18:00] VITALS: BP 139/82; PULSE 99; RESP 18; TEMP 36.4; O2SAT 98
--- NOTE | 2023-05-18 18:25 | HO.PSYCHPN ---
Subjective Subjective Date of Service: 05/18/23 Reason For Visit: psychosis Subjective Notes: Conditional Voluntary Healthcare Proxy: No Guardianship: No Medical Problems Affecting Mental Status: No Interim History: Pt reports feeling improved, reviewed sx prior to admission and discussed how she feels symptoms have been helped with addition of [place]. Wanting to discharge. Family meeting 05/19 11am with mother, step-father and father to discuss progress and discharge planning. Reports sleep is improved. Reviewed her history and perceptions of prescribers she has worked with-unfortunately not positive. Discussed the biological component of illness, neurotransmitter balances, and other options for holistic healing. Care discussed with mother and father via phone. Both believe pt has improved since addition of [place] and we will continue discussion in family meeting 05/19. Medication Compliance: Yes Side effects from medications: No Attending Groups: Yes Review of Systems Acute medical concerns: No Medical Review of Systems: unchanged Mental Status Exam Mental Status Exam Patient Appearance: Appropriate Patient Orientation: Person, Place, Time and Situation Level of Consciousness: Alert Patient Behavior: Appropriate, Talkative, Cooperative and Good Eye Contact Mood Description: Anxious and Apprehensive Affect Description: Anxious and Apprehensive Patient Cognition Impaired: No Ability to Follow Directions: Good Speech Pattern: Spontaneous Speech Memory Description: Intact Hallucinations: None Delusions: Not Present and Paranoid Ideation (mild) Perceptual Disturbances: Derealization (mild) Thought Process: Distracted Thought Content: positive for Circumstantial Depressive Symptoms: Thoughts of /Suicide (denies) Judgement: Good Diagnostics Vital Signs (24Hr): Vital Signs - 24 hr 05/18/23 08:40 Temperature 97.0 F Pulse Rate 109 H Blood Pressure 133/89 Pulse Oximetry 98 Oxygen Delivery Method Room Air BMI result Body Mass Index 18.6 Labs 05/08/23 15:11 05/19/23 08:24 Labs: Laboratory Results - last 48 hr 05/18/23 08:18 [place] 0.31 L Medications Medications Current Medications Acetaminophen (Acetaminophen 325 Mg Tablet) 650 mg PO Q6H PRN PRN Reason: Headache/Pain Mild Scale (1-3) Last Admin: 05/15/23 06:05 Dose: 650 mg Al Hydroxide/Mg Hydroxide (Magnesium Hydrox/Alum Hydrox 30 Ml Oral.Susp) 30 ml PO Q6H PRN PRN Reason: Heartburn/Nausea [place] Carbonate ([place] Carbonate Er 300 Mg Tablet.Er) 300 mg [facility] Last Admin: 05/18/23 09:18 Dose: 300 mg Lorazepam (Lorazepam 1 Mg Tablet) 1 mg PO TID PRN PRN Reason: Anxiety Last Admin: 05/18/23 13:40 Dose: 1 mg Magnesium Hydroxide (Milk Of Magnesia 30 Ml Oral.Susp) 30 ml PO DAILY PRN PRN Reason: Constipation Olanzapine (Olanzapine Odt 10 Mg Tab.Rapdis) 5 mg TRANSLINGU BEDTIME JEFFREY Last Admin: 05/17/23 20:17 Dose: 5 mg Olanzapine (Olanzapine Odt 10 Mg Tab.Rapdis) 5 mg TRANSLINGU BID PRN PRN Reason: agitation psychosis Last Admin: 05/17/23 10:13 Dose: 5 mg Trazodone HCl (Trazodone Hcl 50 Mg Tablet) 50 mg PO BEDTIME MRX1 PRN PRN Reason: Insomnia Allergies Allergies Allergy/AdvReac Type Severity Reaction Status Date / Time prednisone Allergy Unknown Verified 04/18/22 20:29 Assessment & Plan Assessment & Plan (1) Schizoaffective disorder: Status: Acute Code(s): F25.9 - Schizoaffective disorder, unspecified Plan Patient with a history of prior psychosis, currently untreated with past history of at least 3 inpatient hospitalizations presents with disorganized behavior and thinking, mood lability, poor sleep and appetite. On MSE she is disheveled, confused, restless, makes unusual gestures, mumbling rapid speech and disorganized thinking. DDx: Schizophrenia Schizoaffective disorder Bipolar disorder with psychosis Other psychoses 05/10: encourage adherence. Continue to offer Zyprexa and Ativan. 1:1 obs. 05/11: Patient presents disorganized with flight of ideas and some paranoia. She is refusing medications even with staff encouragement; pt stated, I'm not on any medications . T/W attempted to educate patient regarding her medications; however patient is unable to understand and retain information at this time d/t mental status. T/W left VM for patient's mother, Dania, to be able to collect collateral; waiting for call back. 05/12: T/W and SW met with patient mother; see above note. Pt continues to refuse medications. continues disorganized, flight of ideas, restless, rambling. Will continue to encourage medication. 05/13: Patient continues to present disorganized with flight of ideas and some paranoia. Patient is able to have a logical conversation for a brief moment and suddenly begins saying random words and signing with her hands. She did take medications with staff and boyfriend encouragement. Waiting on records from [facility]. 05/14: Patient continues to present more organized with some suspicion and paranoia. Patient is able to have a logical conversation but appears to be internally preoccupied. She did take medications with staff encouragement. T/W discussed risks/benefits of lithium; pt agreed to trial. 05/15: Patient continues to present more organized with some suspicion and paranoia. Patient is able to have a logical conversation but appears to be internally preoccupied with some confusion. Medication compliant. T/W and web content & social media manager, Jeannine, met with patients mother and stepfather; family was informed regarding patients current medications; risks/benefits discussed. Parents expressed appreciation, they plan on visiting patient throughout the weekend. 05/16 continue tx. 05/17 continue tx. consider increasing olanzapine, may schedule dose of ativan may help with latency and blank stare. 05/18 continue current regime and plan of care. Patient educated on: medication risk/benefits and therapeutic strategies Informed Consent: understands and further education needed Reason for continued inpatient stay Substantial Risk for: rapid decompensation Time Spent With Patient Time: Total time managing care of this patient today ____ minutes.
[2023-05-18] MEDS: OLANZapine ODT 10 MG TAB.RAPDIS 5 MG TRANSLINGU (19:54)
[2023-05-19 09:04] VITALS: BP 146/88; PULSE 89; RESP 18; TEMP 36.9; O2SAT 98
[2023-05-19 09:22] LABS: Anion Gap 13 (12-20); Blood Urea Nitrogen 8 mg/dL (9-16); Calcium 9.2 mg/dL (8.4-10.2); Carbon Dioxide 23 mmol/L (22-29); Chloride 107 mmol/L (96-108); Creatinine Clr Calc Pharmacy 92.4; Estimated Glomerular Filt Rate > 60; Glucose Random 91 mg/dL (60-115); Potassium 3.6 mmol/L (3.3-5.1); Sodium 139 mmol/L (135-145)
[2023-05-19] MEDS: Lithium Carbonate ER 300 MG TABLET.ER PO ×2 (09:29→20:35)
[2023-05-19] MEDS: LORazepam 1 MG TABLET PO ×2 (09:29→20:36)
--- NOTE | 2023-05-19 10:09 | P.PNPSI_ITS ---
Subjective Subjective Date of Service: 05/19/23 Reason For Visit: psychosis Subjective Notes: Conditional Voluntary Healthcare Proxy: No Guardianship: No Medical Problems Affecting Mental Status: No Interim History: Family meeting today. Pt will discharge on 05/21. Discussed medication, out patient options, PREP Program options, PHP option, cannabis use and pt's experience with psychiatric treatment by history. Very supportive family-mother, stepfather and father. Pt with some concerns of being compared to her sister. She reports satisfaction with discharge planning. She will review specifics of PREP program with mother to see if she is interested. She will not return to work at this time, as she identifies the stress of work as a possible precipitant to her admission. Parents discussed some of the extended family stressors pt has to manage, as some family members have untreated mental illness and can be difficult at times. Medication Compliance: Yes Side effects from medications: No Attending Groups: Yes Review of Systems Acute medical concerns: No Medical Review of Systems: unchanged Mental Status Exam Mental Status Exam Patient Appearance: Appropriate Patient Orientation: Person, Place, Time and Situation Level of Consciousness: Alert Patient Behavior: Appropriate, Talkative, Cooperative and Good Eye Contact Mood Description: Anxious and Apprehensive Affect Description: Anxious and Apprehensive Patient Cognition Impaired: No Ability to Follow Directions: Good Speech Pattern: Spontaneous Speech Memory Description: Intact Hallucinations: None Delusions: Not Present and Paranoid Ideation (mild) Perceptual Disturbances: Derealization (mild) Thought Process: Distracted Thought Content: positive for Circumstantial Depressive Symptoms: Thoughts of /Suicide (denies) Judgement: Good Diagnostics Vital Signs (24Hr): Vital Signs - 24 hr 05/18/23 18:00 05/19/23 09:04 Temperature 97.5 F 98.4 F Pulse Rate 99 89 Respiratory Rate 18 18 Blood Pressure 139/82 146/88 H Pulse Oximetry 98 98 Oxygen Delivery Method Room Air Room Air BMI result Body Mass Index 18.6 Labs 05/08/23 15:11 05/19/23 08:24 Labs: Laboratory Results - last 48 hr 05/18/23 05/19/23 08:18 08:24 Sodium 139 Potassium 3.6 Chloride 107 Carbon Dioxide 23 Anion Gap 13 BUN 8 L Creatinine 0.78 Estim Creat Clear Calc 92.4 Estimated GFR > 60 Random Glucose 91 Calcium 9.2 D [place] 0.31 L Medications Medications Current Medications Acetaminophen (Acetaminophen 325 Mg Tablet) 650 mg PO Q6H PRN PRN Reason: Headache/Pain Mild Scale (1-3) Last Admin: 05/15/23 06:05 Dose: 650 mg Al Hydroxide/Mg Hydroxide (Magnesium Hydrox/Alum Hydrox 30 Ml Oral.Susp) 30 ml PO Q6H PRN PRN Reason: Heartburn/Nausea [place] Carbonate ([place] Carbonate Er 300 Mg Tablet.Er) 300 mg PO BID JEFFREY Last Admin: 05/19/23 09:29 Dose: 300 mg Lorazepam (Lorazepam 1 Mg Tablet) 1 mg PO TID PRN PRN Reason: Anxiety Last Admin: 05/19/23 09:29 Dose: 1 mg Magnesium Hydroxide (Milk Of Magnesia 30 Ml Oral.Susp) 30 ml PO DAILY PRN PRN Reason: Constipation Olanzapine (Olanzapine Odt 10 Mg Tab.Rapdis) 5 mg TRANSLINGU BEDTIME JEFFREY Last Admin: 05/18/23 19:54 Dose: 5 mg Olanzapine (Olanzapine Odt 10 Mg Tab.Rapdis) 5 mg TRANSLINGU BID PRN PRN Reason: agitation psychosis Last Admin: 05/17/23 10:13 Dose: 5 mg Trazodone HCl (Trazodone Hcl 50 Mg Tablet) 50 mg PO BEDTIME MRX1 PRN PRN Reason: Insomnia Allergies Allergies Allergy/AdvReac Type Severity Reaction Status Date / Time prednisone Allergy Unknown Verified 04/18/22 20:29 Assessment & Plan Assessment & Plan (1) Schizoaffective disorder: Status: Acute Code(s): F25.9 - Schizoaffective disorder, unspecified Plan Patient with a history of prior psychosis, currently untreated with past history of at least 3 inpatient hospitalizations presents with disorganized behavior and thinking, mood lability, poor sleep and appetite. On MSE she is disheveled, confused, restless, makes unusual gestures, mumbling rapid speech and disorganized thinking. DDx: Schizophrenia Schizoaffective disorder Bipolar disorder with psychosis Other psychoses 05/10: encourage adherence. Continue to offer Zyprexa and Ativan. 1:1 obs. 05/11: Patient presents disorganized with flight of ideas and some paranoia. She is refusing medications even with staff encouragement; pt stated, I'm not on any medications . T/W attempted to educate patient regarding her medications; however patient is unable to understand and retain information at this time d/t mental status. T/W left VM for patient's mother, Dania, to be able to collect collateral; waiting for call back. 05/12: T/W and SW met with patient mother; see above note. Pt continues to refuse medications. continues disorganized, flight of ideas, restless, rambling. Will continue to encourage medication. 05/13: Patient continues to present disorganized with flight of ideas and some paranoia. Patient is able to have a logical conversation for a brief moment and suddenly begins saying random words and signing with her hands. She did take medications with staff and boyfriend encouragement. Waiting on records from [facility]. 05/14: Patient continues to present more organized with some suspicion and paranoia. Patient is able to have a logical conversation but appears to be internally preoccupied. She did take medications with staff encouragement. T/W discussed risks/benefits of lithium; pt agreed to trial. 05/15: Patient continues to present more organized with some suspicion and paranoia. Patient is able to have a logical conversation but appears to be internally preoccupied with some confusion. Medication compliant. T/W and social science teacher, Jeannine, met with patients mother and stepfather; family was informed regarding patients current medications; risks/benefits discussed. Parents expressed appreciation, they plan on visiting patient throughout the weekend. 05/16 continue tx. 05/17 continue tx. consider increasing olanzapine, may schedule dose of ativan may help with latency and blank stare. 05/19/23: Discharge 05/21/23. Patient educated on: diagnosis, medication risk/benefits and therapeutic strategies Guardian/Caregiver educated on: diagnosis, medication risk/benefits and therapeutic strategies Informed Consent: understands and further education needed Reason for continued inpatient stay Substantial Risk for: rapid decompensation Time Spent With Patient Time: Total time managing care of this patient today ____ minutes.
[2023-05-19 18:00] VITALS: BP 128/84; PULSE 70; RESP 18; TEMP 36.6; O2SAT 99
[2023-05-19] MEDS: OLANZapine ODT 10 MG TAB.RAPDIS 5 MG TRANSLINGU (20:36)
--- NOTE | 2023-05-20 | ECG_ITS ---
Test Reason : QTC CHECK Blood Pressure : / mmHG Vent. Rate : 096 BPM Atrial Rate : 096 BPM P-R Int : 118 ms QRS Dur : 080 ms QT Int : 356 ms P-R-T Axes : 082 077 033 degrees QTc Int : 449 ms Normal sinus rhythm with sinus arrhythmia Normal ECG No previous ECGs available Referred By: Jenny Madison Electronically Signed By:RENO SCOTT
[2023-05-20 06:00] VITALS: BP 149/86; PULSE 94; RESP 16; TEMP 36.2; O2SAT 100
[2023-05-20] MEDS: Lithium Carbonate ER 300 MG TABLET.ER PO (07:58)
[2023-05-20] MEDS: LORazepam 1 MG TABLET PO (12:19)
--- NOTE | 2023-05-20 16:10 | PM.PSYDC ---
DS: Providers Provider Date of Service: 05/20/23 Date of admission: 05/08/23 23:23 Date of discharge: 05/20/23 Primary care physician: Unknown Physician Admitting clinician: Enrique Lauren Attending physician on admission: Enrique Lauren Attending physician on discharge: German Yee Discharging clinician: Jenny Madison DS: Diagnosis Discharge Diagnosis (1) Schizoaffective disorder: Status: Acute DS: Medications Discharge Medications Home Medications: Home Medications Medication Instructions Recorded Confirmed medroxyprogesterone 150 mg/mL 150 mg IM [id number] 05/08/23 05/08/23 intramuscular syringe (Depo-Provera) Previous Rx's Medication Instructions Recorded lithium carbonate 300 mg 300 mg PO BID #60 tabs 05/20/23 tablet,extended release lorazepam 1 mg tablet 1 mg PO TID PRN Anxiety #10 tabs 05/20/23 olanzapine 10 mg disintegrating 5 mg (1/2 x 10 mg) translingual 05/20/23 tablet BEDTIME #15 tabs olanzapine 10 mg disintegrating 5 mg (1/2 x 10 mg) translingual 05/20/23 tablet BID PRN agitation psychosis #30 tabs trazodone 50 mg tablet 50 mg PO BEDTIME MRX1 PRN Insomnia 05/20/23 #30 tabs Mental Status Exam Mental Status Exam Patient Appearance: Appropriate Patient Orientation: Person, Place, Time and Situation Level of Consciousness: Awake and Alert Patient Behavior: Appropriate and Cooperative Mood Description: Calm (dysthymic) Affect Description: Appropriate Patient Cognition Impaired: No Ability to Follow Directions: Good Speech Pattern: Appropriate Memory Description: Intact Hallucinations: None Delusions: Not Present Thought Process: Intact Thought Content: positive for Intact Judgement: Fair Data Data Completed and Pending Completed studies during hospitalization [Text1]: 05/14/23 05/18/23 05/19/23 10:20 08:18 08:24 Sodium 141 139 Potassium 3.9 D 3.6 Chloride 108 107 Carbon Dioxide 21 L 23 Anion Gap 16 13 BUN 8 L 8 L Creatinine 0.86 0.78 Estim Creat Clear Calc 83.8 92.4 Estimated GFR > 60 > 60 Random Glucose 130 H 91 Calcium 9.8 9.2 D Total Bilirubin 0.8 Direct Bilirubin 0.3 AST 18 ALT 21 Alkaline Phosphatase 63 Ammonia 24 Total Protein 7.5 Albumin 4.9 TSH 0.59 [place] 0.31 L 05/19/23 18:30 Urine clean catch - Clean Catch Midstream Urine Culture - Preliminary No growth to date. 05/08/23 Unknown Urine clean catch - Urine cast top Urine Culture - Final Escherichia coli DS: Summary Hospital Course Hospital Course: Admission to adult psychiatry for exacerbation of psychosis, schizoaffective disorder, bipolar type and cannabis use. Medication regime as evaluated and titrated. Pt's organization, sleep, appetite improved. She was less agitated and paranoid. Family was concerned that her hospital stay was prolonged due to the need for symptom mgt and felt she would be better cared for at home, even though symptoms were not completely extinguished. They spent much of their time on the unit with pt. Pt was discharged to family. She will begin [facility] this week and continue to have treatment support while being able to remain with her family. Time spent discussing smoking cessation with patient: 3 to 10 minutes Status at Discharge Functional status at discharge: independent ambulation Overall status at discharge: patient is progressing back to baseline Time Spent with Patient Time attestation: Total time managing care of this patient today ____ minutes. Time spent: Greater than 30 minutes Discharge Plan Discharge Anticipated Discharge Date/Time: 05/20/23 12:19 Patient Disposition: Home, Self-Care Discharge Diagnosis: Schizoaffective Disorder, Bipolar Type Referrals: Partial Hospitalization Program (PHP):[facility] [Other] - 05/20/23 1:00 pm (Follow cast signs with blue writing to [facility]; The entrance is from [address]- the walkway between the two brick buildings to the brick building connected to the red trailer. Take this walkway to the door, take a left upon entering the building and the program is at the end of that denney. The program is Thursday through Thursday 8:45am-2:15pm) Shana Tomas MD [Physician] - 05/29/23 1:30 pm (in office) Discharge Medications: New trazodone 50 mg Tablet 50 mg PO BEDTIME MRX1 PRN (Reason: Insomnia) Qty: 30 0RF Continued medroxyprogesterone [Depo-Provera] 150 mg/mL Syringe 150 mg IM [id number] No Action olanzapine [Zyprexa] 10 mg tablet 10 mg PO BEDTIME Qty: 30 0RF Rx Instructions: Cx Rx for Zyprexa olanzapine [Zyprexa] 5 mg tablet 5 mg PO DAILY PRN (Reason: psychosis) Qty: 30 0RF Rx Instructions: CX Rx for Zyprexa Zydis lithium carbonate 300 mg Tablet Extended Release 900 mg PO BEDTIME Qty: 90 0RF lorazepam 1 mg Tablet 1 mg PO DAILY PRN (Reason: Anxiety) Qty: 30 0RF Discharge Orders: Discharge Order (Routine); Ordered 05/20/23 Ordered By: Jenny Madison Diet: Advance to usual diet Activity on Discharge: As tolerated Stand Alone Forms: Patient Portal Discharge page, Community Support Care Plan Goals: Mood and Behavioral Stabilization Health Concerns: Mood and Behavioral Stabilization Plan of Treatment: Attend follow up appointments Take medications as directed Call/Return as needed Assessment: Pt interviewed prior to discharge and found to be fully oriented and without any SI/HI. Pt has insight and demonstrates good judgment in terms of wanting to pursue treatment. Pt is not in imminent risk of harm to self or others and has a safety plan that includes presenting to the closest ER or calling 911 if feeling unsafe. Pt has been observed closely by nursing and unit staff throughout admission. Pt has not engaged in any behaviors that suggest dangerousness to self or others and has demonstrated appropriate behaviors and impulse control. Discharge Date/Time: 05/20/23 13:01
== END 2023-05-20 13:01 | disposition home or self-care (01) | DRG 750 ==
LOC: HO.ED 17:14 → HO.PM5 23:27
PROVIDERS: Registered Nurse; Admitting Provider Psychiatry & Neurology Psychiatry; Emergency Provider Emergency Medicine Emergency Medical Services; Visit Provider Clinical Nurse Specialist Psychiatric/Mental Health, Adult
DX: F25.0 Schizoaffective disorder, bipolar type (principal); Z20.822 Contact with and (suspected) exposure to COVID-19; Z79.3 Long term (current) use of hormonal contraceptives; Z79.899 Other long term (current) drug therapy
CPT/HCPCS: 36415; 80048; 80053; 80061; 80143; 80178; 80179; 80307; 81001; 81025; 82140; 82248; 82607; 82746; 84443; 85025; 87086; 87088; 87186; 87635; 93005; 99285

== ENCOUNTER → 2023-05-08 23:23 | Outpatient (BNV) | payer OTHER, SELFPAY | PROVIDERS: Admitting Provider Psychiatry & Neurology Psychiatry; Emergency Provider Emergency Medicine Emergency Medical Services; Responsible Provider Registered Nurse; Visit Provider Psychiatry & Neurology Psychiatry | DX: F31.81 Bipolar II disorder (principal) | CPT/HCPCS: 99231; 99232 ==

== ENCOUNTER → 2023-05-08 23:23 | Outpatient (BNV) | payer OTHER, SELFPAY | PROVIDERS: Admitting Provider Psychiatry & Neurology Psychiatry; Emergency Provider Emergency Medicine Emergency Medical Services; Visit Provider Psychiatry & Neurology Psychiatry | DX: F25.0 Schizoaffective disorder, bipolar type (principal) | CPT/HCPCS: 90792; 99231; 99232; 99239 ==

== ENCOUNTER → 2023-05-21 12:00 | Outpatient (BNV) | payer OTHER, SELFPAY | PROVIDERS: Visit Provider Psychiatry & Neurology Psychiatry | DX: F25.8 Other schizoaffective disorders (principal); F12.10 Cannabis abuse, uncomplicated | CPT/HCPCS: 90792; 99213 ==

== ENCOUNTER 2023-05-26 08:41 | Outpatient (REF) | payer OTHER, SELFPAY ==
--- NOTE | 2023-05-26 13:23 | HO.PHPPROGNO ---
Subjective Subjective Date of Service: 05/26/23 Reason For Visit: F25.0 Interim History: Alie is seen in follow-up today. She did increase her lithium to 900 mg and her blood level this morning was 0.46 after 12 hours from her last dose which probably puts her close to therapeutic range. She has been using Ativan p.r.n. and Zyprexa as itis at 5 mg daily. She will continue those. A 1 month prescription for lithium, Ativan and Zyprexa were sent to her pharmacy. No complaints or side effects. No other changes were made. UA did not indicate UTI Review of Systems Review of Systems Yes all other systems are reviewed and are negative Mental Status Exam Mental Status Exam Narrative: In today's visit she is alert, oriented and pleasant. No acute signs observed. No signs of hypomania. No psychosis. No SI. Cognitively intact. Judgment is intact Diagnostics Labs Labs: Laboratory Results - last 48 hr 05/26/23 05/26/23 09:05 09:06 Urine Color Yellow Urine Appearance Clear Urine pH 7.0 Ur Specific [place] <= 1.005 Urine Protein Negative Urine Glucose (UA) Negative Urine Ketones Negative Urine Blood Negative Urine Nitrite Positive H Ur Leukocyte Esterase Negative Urine RBC 0-2 Urine WBC 0-5 Ur Squamous Epith Cells 0-2 Urine Bacteria 4+ Hyaline Casts 0-2 Power 0.46 L Assessment & Plan Certification I certify that partial hospital treatment is medically necessary due to the symptoms and problems resulting from the patient's mental illness and the failure to treat the patient at the partial hospital level of care would likely result in the patient requiring inpatient psychiatric care which could not be prevented at a less intensive level of care. Total time managing care of this patient today ____ minutes. Discharge Plan Discharge Primary Care Provider: Shana Tomas Referrals: Shana Tomas MD [Primary Care Provider] - 1 Week Discharge Medications: Changed lorazepam 1 mg Tablet 1 mg PO DAILY PRN (Reason: Anxiety) Qty: 30 0RF lithium carbonate 300 mg Tablet Extended Release 900 mg PO BEDTIME Qty: 90 0RF olanzapine 5 mg Tablet,Disintegrating 5 mg PO BEDTIME Qty: 30 0RF Rx Instructions: Take 2 tablets at Bedtime. No Action lithium carbonate 300 mg Tablet Extended Release 600 mg PO BEDTIME medroxyprogesterone [Depo-Provera] 150 mg/mL Syringe 150 mg IM [id number] trazodone 50 mg Tablet 50 mg PO BEDTIME MRX1 PRN (Reason: Insomnia) Qty: 30 0RF
== END 2023-05-26 08:42 | disposition home or self-care (01) ==
LOC: HO.LAB 08:41
PROVIDERS: PCP Internal Medicine; Visit Provider Psychiatry & Neurology Psychiatry
DX: F25.0 Schizoaffective disorder, bipolar type (principal); Z79.899 Other long term (current) drug therapy
CPT/HCPCS: 36415; 80178; 81001; 81003; 87086; 87088; 87186

== ENCOUNTER → 2023-05-26 08:41 | Outpatient (BNV) | payer OTHER, SELFPAY | PROVIDERS: PCP Internal Medicine; Visit Provider Psychiatry & Neurology Psychiatry | DX: F25.0 Schizoaffective disorder, bipolar type (principal) | CPT/HCPCS: 99212; 99214 ==

== ENCOUNTER 2023-06-04 11:30 | Outpatient (RCR) | payer OTHER, SELFPAY ==
[2023-05-21 11:42] VITALS: BP 134/88; PULSE 105; TEMP 36.8
[2023-05-21 11:55] VITALS: BMI 18.7
--- NOTE | 2023-05-21 12:49 | PC.ADMIT ---
Addendum entered by Lauren Montenegro RN 05/21/23 12:59: Patient's mother gave Alie her PRN medication Olanzapine this morning giving her a whole tablet 10 mg instead of cutting the tablet in 1/2 to make 5 mg by mistake. Mother to cut the medication in half moving forward. Original Note: Patient is a 23 year old female who has a dx of Schizoaffective disorder who was referred to [facility] by [facility] inpatient behavioral health unit where patient was reportedly admitted from 05/08-05/20/23 for increased psychosis, disorganized thoughts, confusion, internal preoccupation, flight of ideas and religion preoccupation. This was the patient's 4th inpatient hospitalization. She reportedly has a history of 2 previous psychotic episodes the first was 2 years ago and the second one year ago. She recently graduated from [employer] with a Biology degree. 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 Patient currently presents with some psychosis and non nonsensical speech at times. Some religion preoccupation with angels and praying. She is soft spoken, calm and cooperative. She is alert and oriented x3. Feeling anxious about being here. She is taking her medications as prescribed currently. She reports she does not want to take the medications however she does not want to go back to the hospital thus is taking them. Her mother is helping her with the medications. Medication education provided to patient and patient's mother who came in with the patient this morning along with patient's boyfriend. Patient has been going into the bathroom and wetting paper towels and putting them on her forehead. Medications reconciled with patient, patient's mother and inpatient medication discharge list.
--- NOTE | 2023-05-21 16:58 | HO.PHP ---
Clients case was reviewed and opened today in treatment team.
[2023-05-22 10:01] VITALS: BP 145/84; PULSE 96
--- NOTE | 2023-05-22 10:01 | HO.PS.ADMBH ---
HPI Date of Service: 05/22/23 Chief Complaint: schizoaffective disorder Sources of Information: patient interviewed and chart reviewed Additional Sources of Information: Inpatient records HPI Healthcare Proxy: No Guardianship: No Medical Problems Affecting Mental Status: No Narrative: Alie is a 23-year-old white, single, recent [employer] graduate in [employer] who lives with her boyfriend. Her mother is in check a P and takes care of her medications etc.. Alie has had several hospitalizations going back to 2020 in [place], [facility], [facility] and recently at [facility]. These are for psychotic symptoms plus hypomanic symptoms. She is currently on Ativan p.r.n., Zyprexa Zydis 5 mg, lithium carbonate 600 mg with a level of 0.31. She was recently discharged. She continues to have some racing thoughts, religiously preoccupied. She denies any auditory or visual hallucinations however she was having auditory hallucinations upon admission and some somatic delusions. She denies any major substance abuse but does use marijuana occasionally. No current suicidal ideations. She denied any history of that. She denies any aggression. No side effects reported. She has been sleeping adequately. She is able to give a sketchy account of her history, symptoms but unable to elaborate or be spontaneous. Past Psychiatric History: February 2021: [facility] April 2021: [facility] March 2021: [facility] Narrative: None Family History: Reported mental illness in the family. Sister has bipolar disorder Social History: Raised in [facility]. Parents when patient was 15. Youngest of 2 sisters. Graduated [employer]. 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 Recent move with . Trauma History: Alluded to in crisis evaluation. Details unclear. Diagnostics Vital Signs (24Hr): Vital Signs - 24 hr 05/21/23 11:42 Temperature 98.2 F Pulse Rate 105 H Blood Pressure 134/88 Oxygen Delivery Method Transtracheal Catheter BMI result Body Mass Index 18.7 Meds/Allergies Meds Home Medications Medication Instructions Recorded Confirmed Type medroxyprogesterone 150 mg/mL 150 mg IM [id number] 05/08/23 05/21/23 History intramuscular syringe (Depo-Provera) Allergies Allergies Allergy/AdvReac Type Severity Reaction Status Date / Time prednisone Allergy Unknown Verified 04/18/22 20:29 Mental Status Exam Mental Status Exam Narrative: In today's visit she is alert, oriented and pleasant. Normal speech. Minimal eye contact. Affect is appropriate and constricted. She denies any auditory or visual hallucinations. She is religiously preoccupied. No SI. Cognitively she appears to be grossly intact and appears to be preoccupied. Thought processes are mostly coherent. Some tangentiality. Judgment is mostly intact Assessment & Plan Assessment & Plan (1) Schizoaffective disorder: Status: Acute Code(s): F25.9 - Schizoaffective disorder, unspecified Plan Continue current medications, increase Zyprexa Zydis to 10 mg at night, increase lithium carbonate 900 mg daily and to get a lithium level next Thursday. Continue partial hospital for now unless she becomes more psychotic Certification I certify that partial hospital treatment is medically necessary due to the symptoms and problems resulting from the patient's mental illness and the failure to treat the patient at the partial hospital level of care would likely result in the patient requiring inpatient psychiatric care which could not be prevented at a less intensive level of care. Time Spent With Patient Time: Total time managing care of this patient today _45___ minutes.
--- NOTE | 2023-05-22 14:19 | PC.NURSE ---
Dr Flores stated he made medication changes. He increased [place] Carbonate 300 mg in the am and 600 mg at bedtime. D/C'd Olanzapine OTD 5 mg at Bedtime and 5 mg PRN BID for lability, psychosis, and agitation. Start Olanzapine ODT 10 mg at bedtime. I spoke to patient's mother Rachel with patient present and reviewed the aforementioned medication changes. I also told her I gave Alie a lab slip to complete a lithium blood level on Thursday and to hold the dose of [place] for 12-14 hours before the lab draw and that Alie can take the [place] after the labs are complete. She appeared to understand the instructions and repeated them to me. She also requested Alie have a U/A added as patient had a prior UTI. Dr Flores aware and U/A ordered.
--- NOTE | 2023-05-27 08:41 | HO.PHP ---
PHP staff member received a message from the Admin, Fany, stating that she spoke with Alie who will not be attending program today due to feeling nauseous. Fany assessed for safety, in which no safety concerns were presented and she will be returning to program tomorrow.
--- NOTE | 2023-05-27 09:30 | PC.NURSE ---
Alie called and left a message stating she was not coming to the program today as she was feeling a little nauseous. Alie's mother called and left a message asking staff to call her back as Alie did not have a good night last night. I called and spoke to Alie's mom Dania who stated Alie had a rough night and did not get to sleep until 11:00 and woke up at 3:30 pm. She stated Alie's behavior is irratic stating she has been singing to music loudly, and is being fresh and not reasonable as Dania stated that Alie tells her she is trying to be a doctor. Alie's mother is upset that Alie called out of the program today and Dania stated she was feeling tired and she wanted a break today. She stated she talked to Dr. Flores briefly yesterday and is confused about the medication changes and wanted a PRN medication during the day. I stated that she has Ativan PRN if needed. Dania also stated she spoke to Namita Vang APRN over the weekend about Alie's medications. I spoke to Dr Flores who stated Alie is to take [place] 300 mg tab taking 900 mg at night. He also stated he is decreasing the Olanzapine to 5 mg at night instead of 10 mg. He stated he would call Alie's mother John and go over the medications with her.
--- NOTE | 2023-05-27 12:13 | PC.NURSE ---
I spoke to Dr Flores who stated he spoke to Alie's mother John. Reports psychotic sxs. Medication changes as follows, Zyprexa 10 mg at HS and 5 mg daily prn for agitation. Ativan 1 mg PRN daily for anxiety, [place] 900 mg at HS. Alie is experiencing diarrhea. If it does not go away decrease [place] to 600 mg at HS.
--- NOTE | 2023-05-28 11:17 | HO.PHP ---
Met with Alie, as she expressed concerns about her increase of paranoia coinciding with her psychosis. While meeting with Alie, she was able to advocate her needs and was aware of her symptoms. Alie reported, I know I need to be here. I think group is good for me but I get nervous in groups. I think it is my psychosis. I feel defensive because my father is an alcoholic and when people bring up their stories with alcohol, I feel like they are the bullies who make him drink. I know these people don't know my family but I can't help thinking that. Alie was educated on the group guidelines, that if she feels triggered by what her peers she is allowed momentarily leave group (as long as she gives reinsurance that she will return). She then reported, Big groups make me nervous and I get defensive so I say random things. Additionally, Alie expressed concerned regarding her absence yesterday, stating, I was having stomach issues, if you know what I mean. I was in the bathroom a lot. My mother found out that I called out and told me that she was going to drag me back to inpatient. She said she would call you guys and tell you to put me back in the hospital. I don't want to go back there. Alie was educated on the PHP procures. Alie took deep breaths, took her 5mg PRN of Ativan and then returned to group.
--- NOTE | 2023-05-28 15:41 | PC.NURSE ---
Alie's uring culture came back abnormal. Escherichia coli greater than 100,000. UA positive for nitrates and Plus 4 bacteria. Results faxed to her PCP and a copy was given to Alie. Alie denied any symptoms including stomach pain, burning upon urination, urinary hesitancy, abdominal pressure, or frequency. Spoke to Sarahy HARRISON from patients PCP office of Shana Grimes MD and reviewed the results with her and confirmed she received the faxed lab results. Patient already had a scheduled appointment with her PCP tomorrow at 1:30pm. I spoke to Rachel regarding the above aforementioned information and let her know a copy of the labs were given to Alie to bring to her PCP appointment as well if needed.
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
--- NOTE | 2023-05-29 13:47 | PC.NURSE ---
Patient's mother, Dania called this AM regarding patient status. Mother reports she would like to be in closer contact with staff re: patient's treatment plan. She stated patient continues to have a hard time at home. Stated to mother that I would pass her request to patient's Fell Cutter, CHRISTOPHER Figueroa. Discussion regarding this conversation reviewed in team meeting this AM. Plan per team: CHRISTOPHER Beckman will meet with patient today regarding her mothers request to be mpre involved in patient's treatment plan.
--- NOTE | 2023-05-29 13:59 | PC.NURSE ---
Met with Alie for medication teaching re: Ativan. Alie confused as to what Lorazepam was. Teaching done re: generic and brand names for medications. Patient took notes during med teaching and verbalized understanding. Patient requested results of labs done on 05/26/23. Lab results printed and given to patient who states she will bring them to her PCP appointment. Results were faxed to PCP on 05/26/[address] Miller on 05/26/23. Patient aware.
--- NOTE | 2023-05-29 17:42 | HO.PHP ---
PHP staff received a phone call from the prep program and spoke to Vernell. Vernell provided further insight around how the program is structured. PHP staff explored if she has availability next week for her and Alie to call. Vernell noted that we can reach out to her Thursday at 11 AM. PHP staff was receptive.
--- NOTE | 2023-06-01 10:40 | HO.PHP ---
Alie disclosed that she would like to take her medication, which is a half pill of Ativan and needs someone to observe her take the medication. Alie mentioned her mother wants a staff member to document what time she took the medication. [facility] staff was receptive and observed Alie take her medication of Ativan at 10:40 AM. [facility] staff encouraged Alie to also document the time she took her medication. Alie was receptive.
--- NOTE | 2023-06-02 10:50 | HO.PHP ---
[facility] staff met with Alie to discuss the Prep program and stated that we have a scheduled appointment at 11 AM so she can ask her questions. PHP staff also noted that her previous therapist contacted her and she is unable to take her on at this time. Alie was receptive and noted she would like a holistic therapist. PHP staff and Alie contacted the Prep program and had to leave a VM. The individual the meeting was scheduled with did not contact the clinician back within a 15 minute time frame. Alie was provided with the number as well to contact separately if able. [facility] staff will continue to reach out to the director of the program.
--- NOTE | 2023-06-02 16:23 | HO.PHP ---
Alie informed [facility] staff that she spoke with her PCP who stated he can continue with prescribing her medication and noted she does not need a referral for a med provider at this time. [facility] staff was receptive.
--- NOTE | 2023-06-03 17:18 | HO.PHP ---
PHP staff member went to meet with Alie who was speaking to Vernell from the [facility]. PHP staff member provided support and shared what led Alie to seeking support. lAie advocated for her needs and wants, in which she was able to articulate the events around her psychosis to the best of her abilities. Alie was able to answer all questions asked. Alie's mother was also on the phone call and able to provide support. PHP staff explored if we are able to schedule a date. Alie's phone was dying, so Vernell was going to schedule with her mother to see if they are able to figure out a date and time. Vernell did present a date of tomorrow at 11 AM. Alie noted that it is her last day within the program. Vernell voiced that she will see if she is able to get a 2:30 time tomorrow. PHP staff was receptive and noted if she is unable to, not to worry about discharge since she can look in to extending Alie's time. Vernell was receptive and mentioned she will contact the clinician back and make her aware of the time. PHP staff member was in agreement.
--- NOTE | 2023-06-04 08:49 | HO.PHP ---
06/03/23- Late entry: [facility] staff received a VM from Vernell through the [facility], who had noted that she was able to schedule an appointment for tomorrow at 2:[address] [facility] staff member contacted Vernell back and left a VM asking for clarification around if this will be an intake assessment or to see if she qualifies for the program. PHP staff member is awaiting a phone call back.
--- NOTE | 2023-06-04 08:51 | HO.PHP ---
When [facility] staff came into work, she received a VM from Vernell, through [facility], who had noted that the assessment to tomorrow is to see if Alie qualifies for the program. Vernell noted that since Alie was apart of the phone screening, she is pretty confident that Alie will qualify for the program. Vernell mentioned the only concern is that Alie will discontinue medication but stated if that does occur they will work with her within the program.
--- NOTE | 2023-06-04 15:44 | HO.PHPPROGNO ---
Subjective Subjective Date of Service: 06/04/23 Reason For Visit: schizoaffective disorder Interim History: I evaluated the pt this morning. Today is her last day in [facility]. She has an intake appointment with the [facility] next week. Alie reports ?I'm OK.? No new issues today. Some lingering depression, denies any SI/SHB. Complains of tiredness since being started on the lithium. She also been making efforts to drink more water on account of staying hydrated, as she notees she can get easily dehydrated. She was advised to avoid alcohol and limit NSAID use. Also advised to tay She asked about how long she will have to continue on the medication, which we discussed at length. Patient did not seem to appreciate necessity of treatment. Insight was limited. [place] was increased to 900 mg on 05/22, reportedly her PCP checked a lithium level on 05/29 was 0.6. However this is not in our system, she does not believe any other labs were done. Mental Status Exam Mental Status Exam Patient Appearance: Well Grooomed Patient Orientation: Person, Place, Time and Situation Level of Consciousness: Awake and Alert Patient Behavior: Appropriate and Cooperative Mood Description: Calm (dysthymic) Affect Description: Appropriate Patient Cognition Impaired: No Ability to Follow Directions: Good Speech Pattern: Appropriate Memory Description: Intact Hallucinations: None Delusions: Not Present Thought Process: Intact Thought Content: positive for Intact Judgement: Fair Judgement and Insight: Insight limited Diagnostics Vital Signs (24Hr): BMI result Body Mass Index 18.7 Assessment & Plan Assessment & Plan (1) Schizoaffective disorder: Qualifiers: Schizoaffective disorder type: other Qualified Code(s): F25.8 - Other schizoaffective disorders Status: Acute Code(s): F25.9 - Schizoaffective disorder, unspecified (2) Cannabis abuse: Status: Acute Code(s): F12.10 - Cannabis abuse, uncomplicated Plan Discharge from [facility] today, follow up for intake at [facility] Reviewed discharge instructions with patient, packet signed and given to patient Rx: sent to home pharmacy - [facility]. Patient does not need refills on other regular medications at this time Patient given lab slip to draw here in the morning, hold AM lithium dose until after labs drawn. Refills on lithium sent to pharmacy. Does not need refills at this time for remainder of meds. Primary supports: mom. Lives at home. Certification I certify that partial hospital treatment is medically necessary due to the symptoms and problems resulting from the patient's mental illness and the failure to treat the patient at the partial hospital level of care would likely result in the patient requiring inpatient psychiatric care which could not be prevented at a less intensive level of care. Total time managing care of this patient today __30__ minutes. Discharge Plan Discharge Attending provider: Ryan Ambriz Medications: New olanzapine [Zyprexa] 10 mg tablet 10 mg PO BEDTIME Qty: 30 0RF Rx Instructions: Cx Rx for Zyprexa olanzapine [Zyprexa] 5 mg tablet 5 mg PO DAILY PRN (Reason: psychosis) Qty: 30 0RF Rx Instructions: CX Rx for Zyprexa Zydis Continued lithium carbonate 300 mg Tablet Extended Release 900 mg PO BEDTIME Qty: 90 0RF No Action medroxyprogesterone [Depo-Provera] 150 mg/mL Syringe 150 mg IM [id number] trazodone 50 mg Tablet 50 mg PO BEDTIME MRX1 PRN (Reason: Insomnia) Qty: 30 0RF lorazepam 1 mg Tablet 1 mg PO DAILY PRN (Reason: Anxiety) Qty: 30 0RF Stand Alone Forms: Patient Portal Discharge page Patient Education: [facility] (By mouth), Olanzapine (By mouth), Schizoaffective Disorder (ED), [facility] Toxicity (DC)
== END 2023-06-04 23:59 | disposition home or self-care (01) ==
LOC: HO.PHPA 11:30
PROVIDERS: Visit Provider Psychiatry & Neurology Psychiatry
DX: F25.8 Other schizoaffective disorders (principal); F12.10 Cannabis abuse, uncomplicated; Z79.899 Other long term (current) drug therapy
CPT/HCPCS: 90791; 90853